=== PATIENT | female | born 1930 | race Caucasian/White ===

== ENCOUNTER 2017-03-31 10:37 | Inpatient (IN) | payer OTHER, MEDICARE ==
[~2017-03-31] VITALS: Ht 172.7 cm; Wt 74.6 kg
[~2017-03-31 10:37] MED LIST: AMLO-110 PO; ASPEC81 PO; ATEN-175 PO; ATV5 PO; CHOL100010 PO; CIPR-255 PO; CLTP PO; CMD2 PO; DICY10CA12 PO; DIGO0.2518 PO; DPRCR15 TOP; LISI20TA3 PO; MAGN400T6 PO; MEGA RED PO; MULT-223 PO; NTRSL3 UT; WARF2TAB PO
[2017-03-31] MEDS ORDERED: LACTATED RINGER'S 1000ML 1,000 ML IV SCH (11:12)
[2017-03-31] MEDS ORDERED: ACETAMINOPHEN 500 MG TAB PO PRN (11:15)
[2017-03-31] MEDS ORDERED: HYDROmorphone INJ 0.5 MG/0.5 ML SYR IV PRN ×3 (11:15→13:00)
[2017-03-31 11:28] LABS: BASO % 0.2 %; BASO ABS # 0.02 K/uL (0-0.2); COMPLETE YES; EOS % 1.2 %; HEMATOCRIT 43.9 % (37-47); IG% 0.5 %; LYMPH % 13.7 %; LYMPH ABS # 1.15 K/uL (1.2-3.4); MEAN CELL VOLUME 93.8 fL (80-100); MEAN CORPUSCULAR HEMOGLOBIN 30.8 pg (25-34); MEAN CORPUSCULAR HGB CONC 32.8 g/dl (32-36); MEAN PLATELET VOLUME 10.1 fL (7.4-10.4); MONO % 9.1 %; NEUT % 75.3 %; PLATELET COUNT 214 K/uL (130-400); RED BLOOD COUNT 4.68 M/uL (4.2-5.4); WHITE BLOOD COUNT 8.38 K/uL (4.8-10.8)
[2017-03-31] MEDS ORDERED: WARF6TAB5 PO (11:36)
[2017-03-31] MEDS ORDERED: CHOL100010 PO (11:36)
[2017-03-31] MEDS ORDERED: KRIL1CAP18 PO (11:36)
[2017-03-31] MEDS ORDERED: CALCTAB7 PO (11:36)
[2017-03-31] MEDS ORDERED: LORA-741 PO (11:36)
[2017-03-31] MEDS ORDERED: DPRSL60 TOP (11:36)
[2017-03-31] MEDS ORDERED: LNX125 PO (11:36)
[2017-03-31] MEDS ORDERED: WARF4TAB8 PO (11:36)
[2017-03-31 11:37] LABS: INR 2.3 (0.9-1.1); PARTIAL THROMBOPLASTIN RATIO 1.2; PROTHROMBIN TIME (PATIENT) 25.7 SECONDS (9.0-12.0)
[2017-03-31] MEDS ORDERED: FSM70 PO (11:38)
[2017-03-31 11:46] LABS: BUN/CREATININE RATIO 17.2 (10-20); CALCIUM 9.2 mg/dl (8.5-10.1); POTASSIUM 4.2 mmol/L (3.5-5.1)
--- NOTE | 2017-03-31 12:10 | DIAGNOSTIC IMAGING REPORT ---
CHEST ONE VIEW PORTABLE CLINICAL HISTORY: 86 years-old Female presenting with fall, left hip pain. TECHNIQUE: Portable supine AP view of the chest was obtained. COMPARISON: None. FINDINGS: Atherosclerosis of the aortic arch. Enlargement of the cardiac silhouette. Vague nodular opacities may be present at the left midlung. No other focal infiltrate. Hyperinflated lungs. No pleural effusion or pneumothorax. Osteopenia suggested. Upper abdomen normal. IMPRESSION: 1. Questionable nodular opacities in the left midlung. PA and lateral radiographs of the chest may better demonstrate these opacities if they are present. 2. Hyperinflation. 3. Apparent cardiomegaly. Electronically signed by: Cecilio Lockhart M.D. 03/31/2017 12:08 PM Dictated Date/Time: 03/31/2017 12:05 PM
--- NOTE | 2017-03-31 12:15 | DIAGNOSTIC IMAGING REPORT ---
LEFT PELVIS/UNILATERAL HIP 2-3VIEWS CLINICAL HISTORY: 86 years-old Female presenting with fall, left hip pain. TECHNIQUE: Single frontal view of the pelvis and frontal and frog-leg lateral views of the left hip were obtained. COMPARISON: None. FINDINGS: Displaced intertrochanteric fracture of the left femur. The lesser trochanter is likely forms a separate fracture fragment. There is over 1 cm of displacement of the femoral metaphysis from the femoral neck fragment. There is varus angulation as a result of the fracture also noted. The remainder of the pelvis demonstrates osteopenia. No other fracture is evident. Degenerative changes of the lower lumbar spine. Moderate stool burden. Pelvic phleboliths. IMPRESSION: Displaced and angulated intertrochanteric fracture of the left femur with separate lesser trochanter fracture fragment. Osteopenia. Electronically signed by: Cecilio Lockhart M.D. 03/31/2017 12:14 PM Dictated Date/Time: 03/31/2017 12:11 PM
[2017-03-31 12:41] LABS: URINE APPEARANCE CLEAR (CLEAR); URINE BILIRUBIN NEG (NEG); URINE COLOR YELLOW; URINE NITRITE NEG (NEG); URINE SPECIFIC GRAVITY 1.015 (1.000-1.030); UROBILINOGEN NEG (NEG); ZZURINE CULT IF INDIC CATH NO
[2017-03-31 12:44] LABS: MANUAL MICROSCOPIC REQUIRED? NO; REVIEW REQ? NO
[2017-03-31] MEDS ORDERED: POLYETHYLENE (MIRALAX) 17 GM PACK PO PRN (13:00)
[2017-03-31] MEDS ORDERED: MAGNESIUM HYDROXIDE SUSP 30 ML UDC PO PRN (13:00)
[2017-03-31] MEDS ORDERED: SOD PHOSPHATE/SOD BIPHOSPHATE ENEMA 132 ML BTL PR PRN (13:00)
[2017-03-31] MEDS ORDERED: NALOXONE HCL 0.4 MG/1 ML VIAL/CARP IV PRN (13:00)
[2017-03-31] MEDS ORDERED: BISACODYL 10 MG SUPP PR PRN (13:00)
[2017-03-31] MEDS ORDERED: NITROGLYCERIN 0.3 MG/1 TAB 100 TAB BTL UT PRN (13:30)
[2017-03-31] MEDS ORDERED: DICYCLOMINE HCL 10 MG CAP PO PRN (13:30)
[2017-03-31] MEDS ORDERED: LORAZEPAM 0.5 MG TAB PO PRN (13:30)
[2017-03-31 13:43] VITALS: Ht 172.7 cm; Wt 74.6 kg
[2017-03-31] MEDS ORDERED: PHYTONADIONE INJ 10 MG in SODIUM CHLORIDE 0.9% 50ML 50 ML IV STA (13:56)
[2017-03-31 14:06] LABS: BUN/CREATININE RATIO 16.4 (10-20); POTASSIUM 4.2 mmol/L (3.5-5.1)
[2017-03-31 14:09] LABS: ALB/GLOB RATIO 1.2 (0.9-2)
--- NOTE | 2017-03-31 14:25 | History and Physical ---
History & Physical Date & Time of Service: Mar 31, 2017 at 14:09 Chief Complaint: Fall/ Lf Hip Pain Primary Care Physician: Juan Meza D.O. History of Present Illness Source: patient, family This is a 86 year old F with history of atrial fibrillation on coumadin with witnessed mechanical fall while at fast food restaurant without loss of consciousness. Patient found to have Displaced and angulated intertrochanteric fracture of the left femur with separate lesser trochanter fracture fragment. Patient is has therapeutic level of INR and last took her coumadin yesterday. Patient denies history of cardiac respiratory symptoms despite history of atrial fibrillation for which she also takes digoxin. Reports being able to ambulate without dyspnea at baseline, able to sleep comfortably flat on her back. She reports that she does get swelling of her legs towards the end of the day but that resolves in the morning after sleeping. She denies history of diabetes and there are no antihyperglycemic medications in her medication list. Patient also reports that in emergency situations she is DNR - no intubations, no mechanical ventilation, no chest compressions, no shocking of the heart. I explained to her that the DNR may need to be rescinded temporarily for when doing surgeries. I have referred her to discuss this in greater detail with orthopedic service who will be evaluating her leg fracture for possible surgical intervention. Patient reported that she ate breakfast before mechanical fall today. Past Medical/Surgical History Medical Problems: (1) Atrial fibrillation Status: Chronic (2) Cataract Status: Chronic (3) Diabetes Status: Chronic (4) Heart disease Status: Chronic (5) Kidney disease Status: Chronic Surgical Problems: (1) History of appendectomy Status: Resolved Family History Cancer Diabetes mellitus Hypertension Social History Smoking Status: Former Smoker Marital Status: Housing status: lives with family Occupational Status: retired Multi-Drug Resistant Organisms History of MDRO: No Allergies Coded Allergies: Penicillins (Unverified Allergy, Unknown, 03/31/17) Sulfa Antibiotics (Verified Allergy, Unknown, Unknown, 03/31/17) Vinegar (Unverified Allergy, Unknown, UNKNOWN, 03/31/17) Home Medications Scheduled Alendronate Sodium (Alendronate Sodium), 70 MG PO SUNDAY Amlodipine (Norvasc), 5 MG PO DAILY Atenolol (Tenormin), 100 MG PO QPM Calcium Carbonate-Vitamin D W/ (Caltrate 600 Plus), 1 TAB PO DAILY Cholecalciferol (Vitamin D), 1,000 UNIT PO DAILY Digoxin (Digoxin), 0.125 MG PO DAILY@1500 Krill Oil (Megared [place]-3 Krill Oil 500 mg), 1 CAP PO DAILY Lisinopril (Prinivil), 20 MG PO DAILY Magnesium Oxide (Mag-Ox), 400 MG PO DAILY Multiple Vitamins W/ Minerals (Multi For Her 50+), 1 TAB PO DAILY Nitroglycerin (Nitrostat), 0.3 MG UT PRN Warfarin Sod (Jantoven), 4 MG PO 5XWK Warfarin Sod (Jantoven), 6 MG PO 2XWK Scheduled PRN Betamethasone Dip (Betamethasone Dipropionat), 1 APPLN TOP DAILY PRN for SCALP ITCH Dicyclomine Hcl (Dicyclomine Hcl), 10 MG PO QID PRN for ABDOMINAL PAIN Lorazepam (Ativan), 0.5 MG PO Q6H PRN for Anxiety Review of Systems Constitutional: No fever Eyes: No worsening of vision ENT: No hearing loss Respiratory: No cough, No shortness of breath, No dyspnea on exertion, No dyspnea at rest Cardiovascular: No chest pain, No orthopnea, No edema, No palpitations Abdomen: No pain, No nausea, No vomiting Musculoskeletal: + joint pain (left leg and hip with pain that is now controlled with pain medications), No calf pain Genitourinary - Female: No dysuria Neurologic: No numbness/tingling, No vertigo Psychiatric: No substance abuse Integumentary: No rash Physical Exam Vital Signs Date Time Temp Pulse Resp B/P (MAP) Pulse Ox O2 Delivery O2 Flow Rate FiO2 03/31/17 13:43 Room Air 03/31/17 10:55 81 03/31/17 10:54 37.0 87 25 169/105 96 Room Air General Appearance: no apparent distress Head: normocephalic, atraumatic Eyes: PERRL, EOMI ENT: hearing grossly normal, pharynx normal Neck: supple, no JVD Respiratory/Chest: chest non-tender, lungs clear, normal breath sounds, no respiratory distress, no accessory muscle use Cardiovascular: no edema, no JVD, + irregularly irregular Abdomen/GI: normal bowel sounds, non tender, soft, no pulsatile mass Extremities/Musculoskelatal: no calf tenderness, normal capillary refill, no pedal edema, + pertinent finding (left leg appears to be shorter than right leg when laying flat likely due to fracture) Neurologic/Psych: alert, oriented x 3 Skin: normal color, warm/dry, no rash Diagnostics Laboratory Results Results Past 24 Hours Test 03/31/17 11:17 03/31/17 12:19 03/31/17 13:29 Range/Units White Blood Count 8.38 4.8-10.8 K/uL Red Blood Count 4.68 4.2-5.4 M/uL Hemoglobin 14.4 12.0-16.0 g/dL Hematocrit 43.9 37-47 % Mean Corpuscular Volume 93.8 80-100 fL Mean Corpuscular Hemoglobin 30.8 25-34 pg Mean Corpuscular Hemoglobin Concent 32.8 32-36 g/dl Platelet Count 214 130-400 K/uL Mean Platelet Volume 10.1 7.4-10.4 fL Neutrophils (%) (Auto) 75.3 % Lymphocytes (%) (Auto) 13.7 % Monocytes (%) (Auto) 9.1 % Eosinophils (%) (Auto) 1.2 % Basophils (%) (Auto) 0.2 % Neutrophils # (Auto) 6.31 1.4-6.5 K/uL Lymphocytes # (Auto) 1.15 1.2-3.4 K/uL Monocytes # (Auto) 0.76 0.11-0.59 K/uL Eosinophils # (Auto) 0.10 0-0.5 K/uL Basophils # (Auto) 0.02 0-0.2 K/uL RDW Standard Deviation 48.0 36.4-46.3 fL RDW Coefficient of Variation 14.0 11.5-14.5 % Immature Granulocyte % (Auto) 0.5 % Immature Granulocyte # (Auto) 0.04 0.00-0.02 K/uL Prothrombin Time 25.7 9.0-12.0 SECONDS Prothromb Time International Ratio 2.3 0.9-1.1 Activated Partial Thromboplast Time 31.0 21.0-31.0 SECONDS Partial Thromboplastin Ratio 1.2 Sodium Level 142 136-145 mmol/L Potassium Level 4.2 3.5-5.1 mmol/L Chloride Level 105 98-107 mmol/L Carbon Dioxide Level 31 21-32 mmol/L Anion Gap 6.0 3-11 mmol/L Blood Urea Nitrogen 16 7-18 mg/dl Creatinine 1.00 0.60-1.20 mg/dl Est Creatinine Clear Calc Drug Dose 40.0 ml/min Estimated GFR () 58.7 Estimated GFR (Non- 50.6 BUN/Creatinine Ratio 16.4 10-20 Random Glucose 150 70-99 mg/dl Calcium Level 9.0 8.5-10.1 mg/dl Total Bilirubin 1.1 0.2-1 mg/dl Aspartate Amino Transf (AST/SGOT) 18 15-37 U/L Alanine Aminotransferase (ALT/SGPT) 28 12-78 U/L Alkaline Phosphatase 64 45-117 U/L Total Protein 6.9 6.4-8.2 gm/dl Albumin 3.8 3.4-5.0 gm/dl Globulin 3.1 2.5-4.0 gm/dl Albumin/Globulin Ratio 1.2 0.9-2 Urine Color YELLOW Urine Appearance CLEAR CLEAR Urine pH 7.0 4.5-7.5 Urine Specific [place] 1.015 1.000-1.030 Urine Protein NEG NEG Urine Glucose (UA) NEG NEG Urine Ketones NEG NEG Urine Occult Blood NEG NEG Urine Nitrite NEG NEG Urine Bilirubin NEG NEG Urine Urobilinogen NEG NEG Urine Leukocyte Esterase NEG NEG Diagnostic Radiology CXR radiology findings and radiologist impression Atherosclerosis of the aortic arch. Enlargement of the cardiac silhouette. Vague nodular opacities may be present at the left midlung. No other focal infiltrate. Hyperinflated lungs. No pleural effusion or pneumothorax. Osteopenia suggested. Upper abdomen normal. IMPRESSION: 1. Questionable nodular opacities in the left midlung. PA and lateral radiographs of the chest may better demonstrate these opacities if they are present. 2. Hyperinflation. 3. Apparent cardiomegaly. LEFT PELVIS/UNILATERAL HIP 2-3VIEWS X ray radiology findings FINDINGS: Displaced intertrochanteric fracture of the left femur. The lesser trochanter is likely forms a separate fracture fragment. There is over 1 cm of displacement of the femoral metaphysis from the femoral neck fragment. There is varus angulation as a result of the fracture also noted. The remainder of the pelvis demonstrates osteopenia. No other fracture is evident. Degenerative changes of the lower lumbar spine. Moderate stool burden. Pelvic phleboliths. other (opacities in the left midlung) EKG atrial fibrillation without RVR Impression Assessment and Plan This is a 86 year old F with history of atrial fibrillation on coumadin with witnessed mechanical fall while at fast food restaurant without loss of consciousness found to have Displaced and angulated intertrochanteric fracture of the left femur with separate lesser trochanter fracture fragment. Atrial fibrillation -rate is controlled on EKG and on exam -continue home dose digoxin, check digoxin level -at home she takes coumadin 3 mg on Sunday and Sunday and 2 mg daily on other days. Last coumadin use on 03/30/2017. INR 2.3 on ED presentation on 03/31/17. Ordered Vitamin K IV 10 mg x 1 for INR reversal for possible orthopedic intervention for left femur fracture Other cardiovascular -continue home medications of lisinopril, amlodipine, atenolol Left femur fracture -pain control, bowel regimen, ativan prn for history of anxiety -awaiting orthopedic recommendations Allergies: patient reports allergies to penicillin and sulfa drugs without being able to recall the adverse reactions Code Status -Patient also reports that in emergency situations she is DNR - no intubations, no mechanical ventilation, no chest compressions, no shocking of the heart. I explained to her that the DNR may need to be rescinded temporarily for when doing surgeries. I have referred her to discuss this in greater detail with orthopedic service who will be evaluating her leg fracture for possible surgical intervention. Patient reported that she ate breakfast before mechanical fall today. Advanced Directives Existing Living Will: Yes Existing Power of Aerospace Project Manager: Yes VTE Prophylaxis VTE Risk Assessment Done? Y/N: Yes Risk Level: Moderate
--- NOTE | 2017-03-31 14:32 | Orthopedic Consultation ---
Orthopedic Consultation Date of Consultation: Mar 31, 2017. Attending Physician: Reason for Consultation: L intertroch fx History of Present Illness 86 yo female who tripped, landing onto L hip. Hx of afib, on coumadin. Immediate pain and inability to ambulate. Presented to ED Past Medical/Surgical History Medical Problems: (1) Atrial fibrillation Status: Chronic (2) Femur fracture, left Status: Acute Family History Cancer Diabetes mellitus Hypertension Social History Smoking Status: Former Smoker Marital Status: Housing Status: lives with significant other Occupation Status: retired Allergies Coded Allergies: Penicillins (Unverified Allergy, Unknown, 03/31/17) Sulfa Antibiotics (Verified Allergy, Unknown, Unknown, 03/31/17) Vinegar (Unverified Allergy, Unknown, UNKNOWN, 03/31/17) Home Medications Scheduled Alendronate Sodium (Alendronate Sodium), 70 MG PO SUNDAY Amlodipine (Norvasc), 5 MG PO DAILY Atenolol (Tenormin), 100 MG PO QPM Calcium Carbonate-Vitamin D W/ (Caltrate 600 Plus), 1 TAB PO DAILY Cholecalciferol (Vitamin D), 1,000 UNIT PO DAILY Digoxin (Digoxin), 0.125 MG PO DAILY@1500 Krill Oil (Megared [place]-3 Krill Oil 500 mg), 1 CAP PO DAILY Lisinopril (Prinivil), 20 MG PO DAILY Magnesium Oxide (Mag-Ox), 400 MG PO DAILY Multiple Vitamins W/ Minerals (Multi For Her 50+), 1 TAB PO DAILY Nitroglycerin (Nitrostat), 0.3 MG UT PRN Warfarin Sod (Jantoven), 4 MG PO 5XWK Warfarin Sod (Jantoven), 6 MG PO 2XWK Scheduled PRN Betamethasone Dip (Betamethasone Dipropionat), 1 APPLN TOP DAILY PRN for SCALP ITCH Dicyclomine Hcl (Dicyclomine Hcl), 10 MG PO QID PRN for ABDOMINAL PAIN Lorazepam (Ativan), 0.5 MG PO Q6H PRN for Anxiety Current Inpatient Medications Current Inpatient Medications Medications (Trade) Dose Ordered Sig/Mike Route Start Time Stop Time Status Last Admin Dose Admin Lactated Ringer's 1,000 ml @ 75 mls/hr [id number] IV 03/31/17 11:12 04/30/17 11:11 03/31/17 11:12 75 MLS/HR Acetaminophen (Tylenol Tab) 1,000 mg Q6H PRN PO 03/31/17 11:15 04/30/17 11:14 Hydromorphone HCl (Dilaudid Inj) 0.25 mg Q20M PRN IV 03/31/17 11:15 04/14/17 11:14 Hydromorphone HCl (Dilaudid Inj) 0.5 mg Q20M PRN IV 03/31/17 11:15 04/14/17 11:14 03/31/17 11:29 0.5 MG Hydromorphone HCl (Dilaudid Inj) 0.5 mg Q20M PRN IV 03/31/17 13:00 04/14/17 12:59 Naloxone HCl (Narcan Inj) 0.1 mg PRN PRN IV 03/31/17 13:00 04/30/17 12:59 Senna/Docusate Sodium (Senokot S Tab) 2 tab HS PO 03/31/17 21:00 04/30/17 20:59 UNV Polyethylene (Miralax Powder Packet) 17 gm DAILY PRN PO 03/31/17 13:00 04/30/17 12:59 Magnesium Hydroxide (Milk Of Magnesia Susp) 30 ml DAILY PRN PO 03/31/17 13:00 04/30/17 12:59 Bisacodyl (Dulcolax Supp) 10 mg DAILY PRN MS 03/31/17 13:00 04/30/17 12:59 Sodium Biphosphate/ Sodium Phosphate (Fleet Enema) 132 ml PRN PRN MS 03/31/17 13:00 Amlodipine Besylate (Norvasc Tab) 5 mg DAILY PO 04/01/17 09:00 05/01/17 08:59 UNV Atenolol (Tenormin Tab) 100 mg QPM PO 03/31/17 21:00 04/30/17 20:59 UNV Dicyclomine HCl (Bentyl Cap) 10 mg QID PRN PO 03/31/17 13:30 04/30/17 13:29 Digoxin (Lanoxin Tab) 0.125 mg DAILY@1500 PO 03/31/17 15:00 04/30/17 14:59 UNV Lisinopril (Zestril Tab) 20 mg DAILY PO 04/01/17 09:00 05/01/17 08:59 UNV Lorazepam (Ativan Tab) 0.5 mg Q6H PRN PO 03/31/17 13:30 04/30/17 13:29 Nitroglycerin (Nitrostat Tab) 0.3 mg PRN PRN UT 03/31/17 13:30 04/30/17 13:29 Physical Exam Date Time Temp Pulse Resp B/P (MAP) Pulse Ox O2 Delivery O2 Flow Rate FiO2 03/31/17 14:07 80 22 98 03/31/17 14:01 139/89 03/31/17 13:43 Room Air 03/31/17 13:37 92 20 96 03/31/17 13:31 146/78 03/31/17 13:07 86 29 95 03/31/17 13:01 162/78 03/31/17 12:37 89 24 90 03/31/17 12:31 135/89 03/31/17 12:07 96 21 97 03/31/17 12:01 166/105 03/31/17 11:59 167/94 03/31/17 11:37 85 26 96 03/31/17 11:33 140/89 03/31/17 11:07 79 19 91 03/31/17 10:55 81 03/31/17 10:54 37.0 87 25 169/105 96 Room Air 03/31/17 10:51 169/105 General Appearance: WD/WN Head: normocephalic Eyes: normal inspection Neck: supple Respiratory/Chest: chest non-tender Cardiovascular: regular rate, rhythm Abdomen/GI: soft Extremities/Musculoskelatal: + pertinent finding (Limb slightly internally rotated, 2+ DP, lt sens/motor fxn intact, pain with rotation of leg at hip. No pain to palpation to knee) Laboratory Results Last 24 Hours Test 03/31/17 11:17 03/31/17 12:19 03/31/17 14:19 White Blood Count 8.38 K/uL Red Blood Count 4.68 M/uL Hemoglobin 14.4 g/dL Hematocrit 43.9 % Mean Corpuscular Volume 93.8 fL Mean Corpuscular Hemoglobin 30.8 pg Mean Corpuscular Hemoglobin Concent 32.8 g/dl Platelet Count 214 K/uL Mean Platelet Volume 10.1 fL Neutrophils (%) (Auto) 75.3 % Lymphocytes (%) (Auto) 13.7 % Monocytes (%) (Auto) 9.1 % Eosinophils (%) (Auto) 1.2 % Basophils (%) (Auto) 0.2 % Neutrophils # (Auto) 6.31 K/uL Lymphocytes # (Auto) 1.15 K/uL Monocytes # (Auto) 0.76 K/uL Eosinophils # (Auto) 0.10 K/uL Basophils # (Auto) 0.02 K/uL RDW Standard Deviation 48.0 fL RDW Coefficient of Variation 14.0 % Immature Granulocyte % (Auto) 0.5 % Immature Granulocyte # (Auto) 0.04 K/uL Prothrombin Time 25.7 SECONDS Prothromb Time International Ratio 2.3 Activated Partial Thromboplast Time 31.0 SECONDS Partial Thromboplastin Ratio 1.2 Sodium Level 142 mmol/L Potassium Level 4.2 mmol/L Chloride Level 105 mmol/L Carbon Dioxide Level 31 mmol/L Anion Gap 6.0 mmol/L Blood Urea Nitrogen 16 mg/dl Creatinine 1.00 mg/dl Est Creatinine Clear Calc Drug Dose 40.0 ml/min Estimated GFR () 58.7 Estimated GFR (Non- 50.6 BUN/Creatinine Ratio 16.4 Random Glucose 150 mg/dl Calcium Level 9.0 mg/dl Total Bilirubin 1.1 mg/dl Aspartate Amino Transf (AST/SGOT) 18 U/L Alanine Aminotransferase (ALT/SGPT) 28 U/L Alkaline Phosphatase 64 U/L Total Protein 6.9 gm/dl Albumin 3.8 gm/dl Globulin 3.1 gm/dl Albumin/Globulin Ratio 1.2 Urine Color YELLOW Urine Appearance CLEAR Urine pH 7.0 Urine Specific [place] 1.015 Urine Protein NEG Urine Glucose (UA) NEG Urine Ketones NEG Urine Occult Blood NEG Urine Nitrite NEG Urine Bilirubin NEG Urine Urobilinogen NEG Urine Leukocyte Esterase NEG Assessment & Plan Left intertroch fx INR is 2.3 Being admitted by medicine Will plan ORIF with short troch once INR is acceptable, hopefully tomorrow. NPO p delgado
[2017-03-31 16:24] VITALS: BP 149/82; PULSE 83; TEMP 36.6; O2SAT 99
[2017-03-31] MEDS: DIGOXIN 0.125 MG TAB PO SCH (16:40)
[2017-03-31] MEDS ORDERED: ONDANSETRON INJ 8 MG in DEXTROSE 5% 50ML 50 ML IV PRN (17:30)
[2017-03-31] MEDS ORDERED: ONDANSETRON INJ 2 MG/ML 2 ML VIAL ONE (17:42)
--- NOTE | 2017-03-31 17:52 | EMERGENCY ROOM VISIT NOTE ---
History Report prepared by Daniel: Guillermo Sarmiento Under the Supervision of: Dr. Milton Gavin M.D. First contact with patient: 10:56 Chief Complaint: FALL Stated Complaint: FALL/ LF HIP PAIN History of Present Illness The patient is an 86 year old female with osteoporosis who presents to the Emergency Room via ambulance with complaints of a mechanical fall that occurred prior to arrival this morning. The patient says that she was walking into [employer], and tripped on a rug, falling down onto her left hip. She states that she has resulting persistent left hip pain as well as a left arm skin tear. She says that her other extremities feel fine. The patient rates her current hip pain as an 8 out of 10 in severity, and the pain is worsened with movement. She says that her right side is perfectly fine, and she did not hit head. The patient says that she has never had any hip replacements in the past, but she did fracture a bone in her left foot earlier this year and saw [facility]. She notes that she did not have surgery on the foot. Per the nursing staff, the patient is on Coumadin for atrial fibrillation, and last received 7.5 mg Morphine around 40 minutes ago, and also had 4 of Zofran. Pt denies LOC, headache, visual changes, neck pain, chest pain, breathing difficulties, nausea, vomiting, abdominal pain, back pain, numbness, weakness, open wounds, active bleeding, or other complaints. Source of History: patient, nursing staff Onset: Prior to arrival this morning Position: other (global - fall) Symptom Intensity: fell onto rug walking into [employer] [place], did not hit head Quality: other (mechanical) Modifying Factors (Worsening): movement Note: Associated symptoms: Left hip pain worsened with movement. Left arm skin tear. Right side feels perfectly fine. Review of Systems See HPI for pertinent positives and negatives. A total of ten systems were reviewed and were otherwise negative. Past Medical & Surgical Medical Problems: (1) Atrial fibrillation (2) Cataract (3) Diabetes (4) Heart disease (5) Kidney disease Surgical Problems: (1) History of appendectomy Family History Cancer Diabetes mellitus Hypertension Social History Smoking Status: Never Smoker Marital Status: Housing Status: lives with significant other Occupation Status: retired Current/Historical Medications Scheduled Alendronate Sodium (Alendronate Sodium), 70 MG PO SAMSON Amlodipine (Norvasc), 5 MG PO DAILY Atenolol (Tenormin), 100 MG PO QPM Calcium Carbonate-Vitamin D W/ (Caltrate 600 Plus), 1 TAB PO DAILY Cholecalciferol (Vitamin D), 1,000 UNIT PO DAILY Digoxin (Digoxin), 0.125 MG PO DAILY@1500 Krill Oil (Megared Ona-3 Krill Oil 500 mg), 1 CAP PO DAILY Lisinopril (Prinivil), 20 MG PO DAILY Magnesium Oxide (Mag-Ox), 400 MG PO DAILY Multiple Vitamins W/ Minerals (Multi For Her 50+), 1 TAB PO DAILY Nitroglycerin (Nitrostat), 0.3 MG UT PRN Warfarin Sod (Jantoven), 4 MG PO 5XWK Warfarin Sod (Jantoven), 6 MG PO 2XWK Scheduled PRN Betamethasone Dip (Betamethasone Dipropionat), 1 APPLN TOP DAILY PRN for SCALP ITCH Dicyclomine Hcl (Dicyclomine Hcl), 10 MG PO QID PRN for ABDOMINAL PAIN Lorazepam (Ativan), 0.5 MG PO Q6H PRN for Anxiety Allergies Coded Allergies: Penicillins (Unverified Allergy, Unknown, 03/31/17) Sulfa Antibiotics (Verified Allergy, Unknown, Unknown, 03/31/17) Vinegar (Unverified Allergy, Unknown, UNKNOWN, 03/31/17) Physical Exam Vital Signs Date Time Temp Pulse Resp B/P (MAP) Pulse Ox O2 Delivery O2 Flow Rate FiO2 03/31/17 13:31 146/78 03/31/17 13:07 86 29 95 03/31/17 13:01 162/78 03/31/17 12:37 89 24 90 03/31/17 12:31 135/89 03/31/17 12:07 96 21 97 03/31/17 12:01 166/105 03/31/17 11:59 167/94 03/31/17 11:37 85 26 96 03/31/17 11:33 140/89 03/31/17 11:07 79 19 91 03/31/17 10:55 81 03/31/17 10:54 37.0 87 25 169/105 96 Room Air 03/31/17 10:51 169/105 Physical Exam GENERAL: Awake, alert, well-appearing, in no distress HENT: Normocephalic, atraumatic. Oropharynx unremarkable. EYES: Normal conjunctiva. Sclera non-icteric. NECK: Supple. No nuchal rigidity. FROM. No JVD. RESPIRATORY: Clear to auscultation. CARDIAC: Regular rate, normal rhythm. Extremities warm and well perfused. Pulses equal. ABDOMEN: Soft, non-distended. No tenderness to palpation. No rebound or guarding. No masses. RECTAL: Deferred. MUSCULOSKELETAL: Skin tear on left elbow, no bony tenderness. Chest examination reveals no tenderness. The back is symmetrical on inspection without obvious abnormality. There is no CVA tenderness to palpation. No joint edema. LOWER EXTREMITIES: Left hip tenderness, no thigh tenderness. Range of motion limited secondary to pain in left hip. Calves are equal size bilaterally and non -tender. NEURO: Normal sensorium. No sensory or motor deficits noted. SKIN: No rash or jaundice noted. Medical Decision & Procedures ER Provider Diagnostic Interpretation: X-ray: Per my interpretation, radiologist review. LEFT PELVIS/UNILATERAL HIP 2-3VIEWS CLINICAL HISTORY: 86 years-old Female presenting with fall, left hip pain. TECHNIQUE: Single frontal view of the pelvis and frontal and frog-leg lateral views of the left hip were obtained. COMPARISON: None. FINDINGS: Displaced intertrochanteric fracture of the left femur. The lesser trochanter is likely forms a separate fracture fragment. There is over 1 cm of displacement of the femoral metaphysis from the femoral neck fragment. There is varus angulation as a result of the fracture also noted. The remainder of the pelvis demonstrates osteopenia. No other fracture is evident. Degenerative changes of the lower lumbar spine. Moderate stool burden. Pelvic phleboliths. IMPRESSION: Displaced and angulated intertrochanteric fracture of the left femur with separate lesser trochanter fracture fragment. Osteopenia. Electronically signed by: Cecilio Lockhart M.D. 03/31/2017 12:14 PM Dictated Date/Time: 03/31/2017 12:11 PM CHEST ONE VIEW PORTABLE CLINICAL HISTORY: 86 years-old Female presenting with fall, left hip pain. TECHNIQUE: Portable supine AP view of the chest was obtained. COMPARISON: None. FINDINGS: Atherosclerosis of the aortic arch. Enlargement of the cardiac silhouette. Vague nodular opacities may be present at the left midlung. No other focal infiltrate. Hyperinflated lungs. No pleural effusion or pneumothorax. Osteopenia suggested. Upper abdomen normal. IMPRESSION: 1. Questionable nodular opacities in the left midlung. PA and lateral radiographs of the chest may better demonstrate these opacities if they are present. 2. Hyperinflation. 3. Apparent cardiomegaly. Electronically signed by: Cecilio Lockhart M.D. 03/31/2017 12:08 PM Dictated Date/Time: 03/31/2017 12:05 PM Laboratory Results 03/31/17 11:17 Red Blood Count 4.68, Mean Corpuscular Volume 93.8, Mean Corpuscular Hemoglobin 30.8, Mean Corpuscular Hemoglobin Concent 32.8, Mean Platelet Volume 10.1, Neutrophils (%) (Auto) 75.3, Lymphocytes (%) (Auto) 13.7, Monocytes (%) (Auto) 9.1, Eosinophils (%) (Auto) 1.2, Basophils (%) (Auto) 0.2, Neutrophils # (Auto) 6.31, Lymphocytes # (Auto) 1.15, Monocytes # (Auto) 0.76, Eosinophils # (Auto) 0.10, Basophils # (Auto) 0.02 03/31/17 11:17 Test 03/31/17 11:17 03/31/17 12:19 White Blood Count 8.38 K/uL (4.8-10.8) Red Blood Count 4.68 M/uL (4.2-5.4) Hemoglobin 14.4 g/dL (12.0-16.0) Hematocrit 43.9 % (37-47) Mean Corpuscular Volume 93.8 fL (80-100) Mean Corpuscular Hemoglobin 30.8 pg (25-34) Mean Corpuscular Hemoglobin Concent 32.8 g/dl (32-36) Platelet Count 214 K/uL (130-400) Mean Platelet Volume 10.1 fL (7.4-10.4) Neutrophils (%) (Auto) 75.3 % Lymphocytes (%) (Auto) 13.7 % Monocytes (%) (Auto) 9.1 % Eosinophils (%) (Auto) 1.2 % Basophils (%) (Auto) 0.2 % Neutrophils # (Auto) 6.31 K/uL (1.4-6.5) Lymphocytes # (Auto) 1.15 K/uL (1.2-3.4) Monocytes # (Auto) 0.76 K/uL (0.11-0.59) Eosinophils # (Auto) 0.10 K/uL (0-0.5) Basophils # (Auto) 0.02 K/uL (0-0.2) RDW Standard Deviation 48.0 fL (36.4-46.3) RDW Coefficient of Variation 14.0 % (11.5-14.5) Immature Granulocyte % (Auto) 0.5 % Immature Granulocyte # (Auto) 0.04 K/uL (0.00-0.02) Prothrombin Time 25.7 SECONDS (9.0-12.0) Prothromb Time International Ratio 2.3 (0.9-1.1) Activated Partial Thromboplast Time 31.0 SECONDS (21.0-31.0) Partial Thromboplastin Ratio 1.2 Anion Gap 6.0 mmol/L (3-11) Est Creatinine Clear Calc Drug Dose 40.0 ml/min Estimated GFR () 58.7 Estimated GFR (Non- 50.6 BUN/Creatinine Ratio 16.4 (10-20) Calcium Level 9.0 mg/dl (8.5-10.1) Total Bilirubin 1.1 mg/dl (0.2-1) Aspartate Amino Transf (AST/SGOT) 18 U/L (15-37) Alanine Aminotransferase (ALT/SGPT) 28 U/L (12-78) Alkaline Phosphatase 64 U/L (45-117) Total Protein 6.9 gm/dl (6.4-8.2) Albumin 3.8 gm/dl (3.4-5.0) Globulin 3.1 gm/dl (2.5-4.0) Albumin/Globulin Ratio 1.2 (0.9-2) Urine Color YELLOW Urine Appearance CLEAR (CLEAR) Urine pH 7.0 (4.5-7.5) Urine Specific Carroll 1.015 (1.000-1.030) Urine Protein NEG (NEG) Urine Glucose (UA) NEG (NEG) Urine Ketones NEG (NEG) Urine Occult Blood NEG (NEG) Urine Nitrite NEG (NEG) Urine Bilirubin NEG (NEG) Urine Urobilinogen NEG (NEG) Urine Leukocyte Esterase NEG (NEG) Laboratory results reviewed by me Medications Administered Medications (Trade) Dose Ordered Sig/Mike Route Start Time Stop Time Status Last Admin Dose Admin Lactated Ringer's 1,000 ml @ 75 mls/hr [id number] IV 03/31/17 11:12 03/31/17 16:02 DC 03/31/17 11:12 75 MLS/HR Hydromorphone HCl (Dilaudid Inj) 0.5 mg Q20M PRN IV 03/31/17 11:15 03/31/17 16:03 DC 03/31/17 11:29 0.5 MG Hydromorphone HCl (Dilaudid Inj) 0.5 mg Q20M PRN IV 03/31/17 13:00 04/14/17 12:59 03/31/17 16:19 0.5 MG Procedure Location: Left elbow Total length: skin tear 2cm Complexity: simple Verbal consent was obtained after the risks and benefits were explained, including but not limited to bleeding, scarring, infection, pain. At this time, the risks of the procedure are less than the risks of NOT performing the procedure. A time out was taken and the correct patient and site identified. TCopious irrigation was performed using saline. The wound was explored for foreign bodies and none found. Examination revealed no injury to deep structures such as tendons, bone, or significant blood vessels. Debridement was not performed. The skin edges were approximated using Dermabond. Hemostasis and excellent approximation was achieved. No complications and the patient tolerated the procedure well. ED Course 1058: The patient was evaluated in room C7. A complete history and physical exam was performed. 1112: Ordered Lactated Ringer's 1000 ml @ 75 mls/hr IV. 1115: Ordered Dilaudid Inj 0.5 mg IV PRN, Dilaudid Inj 0.25 mg IV PRN. 1240: I reevaluated the patient and she is resting. The patient and her family verbally expressed understanding and agreement of the treatment plan. The patient will be evaluated for further treatment. 1248: I discussed the patient with Dr. Perdomo [facility] orthopedics. 1253: I discussed the patient with Dr. Nick Yoon paper machine tender will evaluate the patient for further treatment. 1348: I reevaluated and updated the patient. She is resting comfortably. Medical Decision Prior records reviewed and summarized above. Triage Nursing notes reviewed and agree them. Additional history obtained from family.. The patient's history was concerning for traumatic injury. Differential diagnosis: Etiologies such as fracture, dislocation, neurovascular compromise, compartment syndrome, soft tissue injury, as well as others were entertained. Physical examination: Consistent with an isolated hip injury. Minor skin tear to the left elbow. No head injury or other injury. ER treatment provided: IV lock IV Dilaudid Rodriguez catheter NPO Bedrest Dermabond to the skin tear. On reassessment the patient felt better. Diagnostics interpreted by me: ECG: As above. The labs revealed an unremarkable CBC, coags, and chemistry panel. Therapeutic INR. Imaging studies: Xrays as above. The patient has an isolated hip fracture and will need admission to the hospital. Consultation: A consultation was placed with orthopedics. The case was discussed and diagnostics were reviewed. The patient was evaluated in the ER for further treatment. The chart was completed utilizing [email or web address] Speech voice recognition software. Grammatical errors, random word insertions, pronoun errors, and incomplete sentences are an occasional consequence of this system due to software limitations, ambient noise, and hardware issues. Any formal questions or concerns about the content, text, or information contained within the body of this dictation should be directly addressed to the physician for clarification. Head Trauma GCS Score: 15 Medication Reconcilliation Current Medication List: was personally reviewed by me Blood Pressure Screening Patient's blood pressure: Elevated blood pressure Blood pressure disposition: Elevated BP felt to be situational Consults Time Called: 1245 Consulting Physician: Dr. Leanne Wilhelm orthopedics Returned Call: 1245 I discussed the patient with Dr. Leanne Wilhelm orthopedics. Additional Consults: Time Called: 1245 Consulted Physician: Dr. Nick Yoon paper machine tender Returned Call: 1253 Additional Comments: I discussed the patient with Dr. Nick Yoon paper machine tender will evaluate the patient for further treatment. Impression Primary Impression: Hip fracture, left Additional Impressions: Skin tear of left elbow without complication Fall Scribe Attestation The scribe's documentation has been prepared under my direction and personally reviewed by me in its entirety. I confirm that the note above accurately reflects all work, treatment, procedures, and medical decision making performed by me. Departure Information Dispostion Being Evaluated By Hospitalist Referrals Juan Meza D.O. (PCP) Patient Instructions [facility] Problem Qualifiers Primary Impression: Hip fracture, left Encounter type: initial encounter Fracture type: closed Qualified Codes: S72.002A - Fracture of unspecified part of neck of left femur, initial encounter for closed fracture Additional Impressions: Skin tear of left elbow without complication Encounter type: initial encounter Qualified Codes: S51.012A - Laceration without foreign body of left elbow, initial encounter Fall Encounter type: initial encounter Qualified Codes: W19.XXXA - Unspecified fall, initial encounter
[2017-03-31] MEDS ORDERED: NURSING VERBAL MED ORDER ONE (18:00)
[2017-03-31] MEDS ORDERED: ONDANSETRON INJ 2 MG/ML 2 ML VIAL IV PRN (18:15)
[2017-03-31] MEDS: DOCUSATE SODIUM/SENNA 50/8.6MG TAB PO SCH (22:00)
[2017-03-31 22:01] VITALS: BP 152/82; PULSE 91
[2017-03-31 23:03] VITALS: BP 137/81; PULSE 79; TEMP 36.8; O2SAT 98
[2017-04-01] VITALS (10 sets, daily range): BP systolic 118–156; BP diastolic 68–84; PULSE 76–103; TEMP 36.6–36.9; O2SAT 91–97
[2017-04-01] MEDS ORDERED: CLINDAMYCIN 600 MG/54 ML D5W IV SCH (06:00)
[2017-04-01] MEDS ORDERED: FENTANYL CITRATE INJ 50 MCG/1 ML 2 ML VIAL ONE ×2 (06:59→09:17)
[2017-04-01] MEDS ORDERED: LIDOCAINE HCL 2% 2 ML VIAL (20MG/ML) ONE (06:59)
[2017-04-01] MEDS ORDERED: PROPOFOL IV EMULSION 10 MG/ML 20 ML VIAL IV ONE (06:59)
[2017-04-01 07:22] LABS: BASO % 0.2 %; BASO ABS # 0.02 K/uL (0-0.2); COMPLETE YES; EOS % 0.6 %; HEMATOCRIT 36.6 % (37-47); IG% 0.3 %; LYMPH % 14.6 %; LYMPH ABS # 1.46 K/uL (1.2-3.4); MEAN CELL VOLUME 93.4 fL (80-100); MEAN CORPUSCULAR HEMOGLOBIN 31.4 pg (25-34); MEAN CORPUSCULAR HGB CONC 33.6 g/dl (32-36); MEAN PLATELET VOLUME 10.2 fL (7.4-10.4); MONO % 10.5 %; NEUT % 73.8 %; PLATELET COUNT 206 K/uL (130-400); RED BLOOD COUNT 3.92 M/uL (4.2-5.4); WHITE BLOOD COUNT 10.03 K/uL (4.8-10.8)
[2017-04-01 07:38] LABS: INR 1.1 (0.9-1.1); PROTHROMBIN TIME (PATIENT) 12.3 SECONDS (9.0-12.0)
--- NOTE | 2017-04-01 07:38 | History & Physical Bridge Note ---
H&P Re-Evaluation Bridge Note: I have examined the patient, reviewed the History & Physical and in the interval since the performance of the History & Physical I have noted the following changes of clinical significance: No changes noted
[2017-04-01] MEDS ORDERED: BUPIVACAINE/EPINEPHRINE 0.5% MPF 1:200,000 10 ML VIAL ONE (07:48)
[2017-04-01 07:55] LABS: CALCIUM 8.6 mg/dl (8.5-10.1); CREATININE 0.87 mg/dl (0.60-1.20); POTASSIUM 3.7 mmol/L (3.5-5.1)
[2017-04-01 08:03] LABS: ALB/GLOB RATIO 1.1 (0.9-2)
[2017-04-01] MEDS ORDERED: PHENYLEPHRINE HCL INJ 10 MG/ML VIAL ONE (08:33)
[2017-04-01] MEDS ORDERED: NEOSTIGMINE METHYLSULFATE 5 MG/5 ML SYR ONE (08:33)
[2017-04-01] MEDS ORDERED: GLYCOPYRROLATE INJ 0.2 MG/ML VIAL ONE (08:33)
[2017-04-01] MEDS ORDERED: ONDANSETRON INJ 2 MG/ML 2 ML VIAL ONE (08:33)
[2017-04-01] MEDS ORDERED: DEXAMETHASONE SOD INJ 4 MG/ML VIAL ONE (08:33)
[2017-04-01] MEDS ORDERED: CISATRACURIUM BESYLATE IV SOLN 2 MG/ML 10 ML VIAL ONE (08:33)
[2017-04-01] MEDS ORDERED: ONDANSETRON INJ 2 MG/ML 2 ML VIAL IV PRN ×2 (09:00→09:45)
[2017-04-01] MEDS ORDERED: ATROPINE SULFATE 0.1 MG/ML 5ML SYR IV PRN (09:00)
[2017-04-01] MEDS ORDERED: EpHEDrine SULFATE INJ 50 MG/ML AMP IV PRN (09:00)
[2017-04-01] MEDS ORDERED: FENTANYL CITRATE INJ 50 MCG/1 ML 2 ML VIAL IV PRN (09:00)
--- NOTE | 2017-04-01 09:16 | DIAGNOSTIC IMAGING REPORT ---
LEFT HIP OR FILMS HISTORY: 86 years-old Female LT HIP, SHORT TROCH NAIL COMPARISON: Pelvis and left hip radiographs 03/31/2017 TECHNIQUE: 3 spot fluoroscopic images of the left hip were obtained utilizing 74.6 seconds of fluoroscopy time. FINDINGS/IMPRESSION: There has been interval placement of a left femur short intramedullary mehul with intertrochanteric nail fixating an acute intertrochanteric fracture. There is improved alignment of the previously described displaced and angulated intertrochanteric fracture. Mildly displaced lesser trochanteric fracture is redemonstrated. The above report was generated using voice recognition software. It may contain grammatical, syntax or spelling errors. Electronically signed by: Dong Munguia M.D. 04/01/2017 9:15 AM Dictated Date/Time: 04/01/2017 9:12 AM
--- NOTE | 2017-04-01 09:18 | [facility] Operative Report ---
Operative Report Operative Date Apr 01, 2017. Pre-Operative Diagnosis Left Intertroch Fracture Post-Operative Diagnosis Left Intertroch Fracture Procedure(s) Performed Left hip short trochanteric nail. Surgeon Auto Glass Technician Surgeon(s) None Estimated Blood Loss 50 cc Findings Above Specimens None per surgeon Drains none Anesthesia Gen. Complication(s) None Disposition Recovery Room / PACU Indications 86-year-old female who tripped and fell onto the left hip. She sustained a left intertrochanteric fracture. Given the nature of the injury I recommended open reduction internal fixation with a trochanteric fixation nail. Description of Procedure Risks benefits and alternatives of surgery including but not limited to infection, DVT, PE, pain, stiffness, need for surgery, damage to blood vessels, damage to nerves or risks of anesthesia, were discussed with the patient and her family and they wished to proceed. Patient was identified in the laterality was confirmed and marked. They received a preoperative antibiotic. The patient was transferred to the fracture table. The operative limb was placed in traction and the well leg was placed in a well leg apple that was well-padded. The arms were well-padded and placed out of the way of the surgical field. I confirmed reduction of the fracture with fluoroscopy with the patient's fracture table and made adjustments to fracture table alignment is necessary to reduce the fracture appropriately. The hip was then prepped and draped in the usual standard manner with ChloraPrep. I made a longitudinal incision proximal to the greater trochanter. I sharply incised through the skin and then used Bovie electrocautery to achieve hemostasis. I incised through the fascia and then bluntly dissected down to the tip of the greater trochanter. Under fluoroscopic guidance I placed a guide pin into the greater trochanter and ensured proper placement on both AP and lateral fluoroscopy views. Once I was satisfied with the position of the guide. I advanced this distally. I then overreamed with the 17 mm proximal reamer. I then placed a Synthes trochanteric fixation nail into position. The size of the nail was a short nail. Then I placed the guide arm onto the nail insertion device made a stab incision more distally and then placed the drill guide for the helical blade. I adjusted the position of the nail as necessary to ensure that the guidepin was center center in the femoral head. Once I was satisfied with the position of the pin advanced it to the appropriate position of the femoral head. I then measured and then reamed the lateral cortex and then reamed down into the femoral head. I then inserted a size [address] I then locked the set screw proximally and then compressed the fracture. Then through a stab incision I placed a interlocking screw through the drill guide. I confirmed hardware placement and maintenance of reduction on AP and lateral fluoroscopy views. Wounds were then thoroughly irrigated. The fascia was closed with interrupted #1 Vicryl suture. Subcutaneous tissues closed with interrupted 2-0 Vicryl suture and the skin with adán. Sterile dressings applied. All needle and sponge counts were correct at the end of the procedure the patient was transferred to the PACU in stable condition without apparent complication. I attest to the content of the Intraoperative Record and any orders documented therein. Any exceptions are noted below.
[2017-04-01] MEDS ORDERED: D5W AND NSS 1,000 ML IV SCH (09:31)
[2017-04-01] MEDS ORDERED: MAGNESIUM HYDROXIDE SUSP 30 ML UDC PO PRN (09:45)
[2017-04-01] MEDS ORDERED: COUGH DROP (SUGAR FREE) LOZ 24 LOZ/1 BOX PO PRN (09:45)
[2017-04-01] MEDS ORDERED: ACETAMINOPHEN 325 MG TAB PO PRN (09:45)
[2017-04-01] MEDS ORDERED: OXYCODONE HCL IR 5 MG TAB (IMMEDIATE RELEASE) PO PRN (09:45)
--- NOTE | 2017-04-01 09:49 | Anesthesiology Progress Note ---
Anesthesia Post Op Note Date & Time Apr 01, 2017 at 09:49 Vital Signs Pain Intensity: 0 Vital Signs Past 12 Hours Date Time Temp Pulse Resp B/P (MAP) Pulse Ox O2 Delivery O2 Flow Rate FiO2 04/01/17 09:40 83 16 138/78 95 Oxymask 10 04/01/17 09:30 86 16 145/86 96 Oxymask 10 04/01/17 09:22 36.8 96 16 143/93 96 Oxymask 10 04/01/17 07:07 36.9 89 16 156/84 (108) 97 Room Air 04/01/17 01:00 Room Air 03/31/17 23:03 36.8 79 14 137/81 (99) 98 Nasal Cannula 2.0 03/31/17 22:01 91 152/82 (105) Notes Mental Status: alert / awake / arousable, participated in evaluation Pt Amnestic to Procedure: Yes Nausea / Vomiting: adequately controlled Pain: adequately controlled Airway Patency, RR, SpO2: stable & adequate BP & HR: stable & adequate Hydration State: stable & adequate Anesthetic Complications: no major complications apparent
[2017-04-01] MEDS: LISINOPRIL 20 MG TAB PO SCH (13:50)
[2017-04-01] MEDS: AMLODIPINE BESYLATE 5 MG TAB PO SCH (13:50)
[2017-04-01] MEDS: CLINDAMYCIN IV 600 MG in DEXTROSE 5% 50ML 50 ML IV SCH ×2 (13:50→22:10)
[2017-04-01] MEDS: WARFARIN SOD 5 MG TAB PO SCH (15:48)
[2017-04-01] MEDS: DIGOXIN 0.125 MG TAB PO SCH (15:49)
--- NOTE | 2017-04-01 21:06 | Progress Note ---
Medicine Progress Note Date & Time of Visit: Apr 01, 2017 at 17:36. Subjective just returned from operation this morning throat slightly sore from intubation denies nausea, chest pain, shortness of breath or hip pain at this time in good spirits and conversing with denies LOC or dizziness related to fall Objective Last 8 Hrs Date Time Temp Pulse Resp B/P (MAP) Pulse Ox O2 Delivery O2 Flow Rate FiO2 04/01/17 15:49 103 04/01/17 15:16 36.6 103 18 136/78 (97) 93 Room Air 04/01/17 13:15 36.6 94 18 133/73 (93) 97 Room Air 04/01/17 12:15 36.7 78 16 142/69 (93) 95 Nasal Cannula 2.0 04/01/17 11:15 36.7 90 18 120/77 (91) 96 Nasal Cannula 2.0 04/01/17 10:47 81 17 130/68 (88) 91 Nasal Cannula 2.0 04/01/17 10:15 Nasal Cannula 04/01/17 10:15 36.9 76 16 122/75 (91) 96 Nasal Cannula 2.0 04/01/17 10:15 96 Nasal Cannula 2.0 04/01/17 10:00 36.2 96 16 135/72 96 Nasal Cannula 2 04/01/17 09:50 96 16 146/70 96 Nasal Cannula 2 04/01/17 09:40 83 16 138/78 95 Oxymask 10 Physical Exam: GEN: WNWD, in no acute distress, alert and appropriate HEENT: NC/AT, normal sclerae, MMM NECK: trachea midline CARDIO: reg rate, S1/2 heard without m/g/r LUNGS: CTA bilaterally, no crackles, rales or wheezes, good diaphragmatic excursion ABD: soft, non-tender, non-distended, no rebound or guarding, +BS EXTREMITY: RP and DP palpable 2+ bilat, no LE swelling or edema, extremities are warm and well-perfused, LE NVI, L hip with dry dressing in place over wound N/M: CN 2-12 grossly intact, sensation intact throughout, no gross focal deficits. SKIN: warm and dry Laboratory Results: 04/01/17 06:33 Red Blood Count 3.92, Mean Corpuscular Volume 93.4, Mean Corpuscular Hemoglobin 31.4, Mean Corpuscular Hemoglobin Concent 33.6, Mean Platelet Volume 10.2, Neutrophils (%) (Auto) 73.8, Lymphocytes (%) (Auto) 14.6, Monocytes (%) (Auto) 10.5, Eosinophils (%) (Auto) 0.6, Basophils (%) (Auto) 0.2, Neutrophils # (Auto ) 7.41, Lymphocytes # (Auto) 1.46, Monocytes # (Auto) 1.05, Eosinophils # (Auto ) 0.06, Basophils # (Auto) 0.02 04/01/17 06:33 Test 03/31/17 12:19 03/31/17 14:19 04/01/17 06:33 04/01/17 09:41 Urine Color YELLOW Urine Appearance CLEAR (CLEAR) Urine pH 7.0 (4.5-7.5) Urine Specific [place] 1.015 (1.000-1.030) Urine Protein NEG (NEG) Urine Glucose (UA) NEG (NEG) Urine Ketones NEG (NEG) Urine Occult Blood NEG (NEG) Urine Nitrite NEG (NEG) Urine Bilirubin NEG (NEG) Urine Urobilinogen NEG (NEG) Urine Leukocyte Esterase NEG (NEG) Digoxin Level 0.4 ng/ml (0.8-2.0) White Blood Count 10.03 K/uL (4.8-10.8) Red Blood Count 3.92 M/uL (4.2-5.4) Hemoglobin 12.3 g/dL (12.0-16.0) Hematocrit 36.6 % (37-47) Mean Corpuscular Volume 93.4 fL (80-100) Mean Corpuscular Hemoglobin 31.4 pg (25-34) Mean Corpuscular Hemoglobin Concent 33.6 g/dl (32-36) Platelet Count 206 K/uL (130-400) Mean Platelet Volume 10.2 fL (7.4-10.4) Neutrophils (%) (Auto) 73.8 % Lymphocytes (%) (Auto) 14.6 % Monocytes (%) (Auto) 10.5 % Eosinophils (%) (Auto) 0.6 % Basophils (%) (Auto) 0.2 % Neutrophils # (Auto) 7.41 K/uL (1.4-6.5) Lymphocytes # (Auto) 1.46 K/uL (1.2-3.4) Monocytes # (Auto) 1.05 K/uL (0.11-0.59) Eosinophils # (Auto) 0.06 K/uL (0-0.5) Basophils # (Auto) 0.02 K/uL (0-0.2) RDW Standard Deviation 47.1 fL (36.4-46.3) RDW Coefficient of Variation 13.8 % (11.5-14.5) Immature Granulocyte % (Auto) 0.3 % Immature Granulocyte # (Auto) 0.03 K/uL (0.00-0.02) Prothrombin Time 12.3 SECONDS (9.0-12.0) Prothromb Time International Ratio 1.1 (0.9-1.1) Activated Partial Thromboplast Time 26.4 SECONDS (21.0-31.0) Partial Thromboplastin Ratio 1.0 Anion Gap 7.0 mmol/L (3-11) Est Creatinine Clear Calc Drug Dose 45.9 ml/min Estimated GFR () 69.4 Estimated GFR (Non- 59.9 BUN/Creatinine Ratio 16.0 (10-20) Calcium Level 8.6 mg/dl (8.5-10.1) Total Bilirubin 2.0 mg/dl (0.2-1) Aspartate Amino Transf (AST/SGOT) 11 U/L (15-37) Alanine Aminotransferase (ALT/SGPT) 19 U/L (12-78) Alkaline Phosphatase 51 U/L (45-117) Total Protein 6.1 gm/dl (6.4-8.2) Albumin 3.2 gm/dl (3.4-5.0) Globulin 2.9 gm/dl (2.5-4.0) Albumin/Globulin Ratio 1.1 (0.9-2) Bedside Glucose 187 mg/dl (70-90) Date/Time Source Procedure Growth Status 03/31/17 00:00 Nasal MRSA DNA Surveillance Screen - Final Specimen Negative for MRSA by DNA Probe Complete Last 24 Hours Test 04/01/17 06:33 04/01/17 09:41 White Blood Count 10.03 K/uL Red Blood Count 3.92 M/uL Hemoglobin 12.3 g/dL Hematocrit 36.6 % Mean Corpuscular Volume 93.4 fL Mean Corpuscular Hemoglobin 31.4 pg Mean Corpuscular Hemoglobin Concent 33.6 g/dl Platelet Count 206 K/uL Mean Platelet Volume 10.2 fL Neutrophils (%) (Auto) 73.8 % Lymphocytes (%) (Auto) 14.6 % Monocytes (%) (Auto) 10.5 % Eosinophils (%) (Auto) 0.6 % Basophils (%) (Auto) 0.2 % Neutrophils # (Auto) 7.41 K/uL Lymphocytes # (Auto) 1.46 K/uL Monocytes # (Auto) 1.05 K/uL Eosinophils # (Auto) 0.06 K/uL Basophils # (Auto) 0.02 K/uL RDW Standard Deviation 47.1 fL RDW Coefficient of Variation 13.8 % Immature Granulocyte % (Auto) 0.3 % Immature Granulocyte # (Auto) 0.03 K/uL Prothrombin Time 12.3 SECONDS Prothromb Time International Ratio 1.1 Activated Partial Thromboplast Time 26.4 SECONDS Partial Thromboplastin Ratio 1.0 Sodium Level 142 mmol/L Potassium Level 3.7 mmol/L Chloride Level 105 mmol/L Carbon Dioxide Level 30 mmol/L Anion Gap 7.0 mmol/L Blood Urea Nitrogen 14 mg/dl Creatinine 0.87 mg/dl Est Creatinine Clear Calc Drug Dose 45.9 ml/min Estimated GFR () 69.4 Estimated GFR (Non- 59.9 BUN/Creatinine Ratio 16.0 Random Glucose 136 mg/dl Calcium Level 8.6 mg/dl Total Bilirubin 2.0 mg/dl Aspartate Amino Transf (AST/SGOT) 11 U/L Alanine Aminotransferase (ALT/SGPT) 19 U/L Alkaline Phosphatase 51 U/L Total Protein 6.1 gm/dl Albumin 3.2 gm/dl Globulin 2.9 gm/dl Albumin/Globulin Ratio 1.1 Bedside Glucose 187 mg/dl Assessment & Plan 86 yo F s/p mechanical fall with displaced and angulated intertrochanteric fracture of the left femur with separate lesser trochanter fracture fragment s/ p L short intertrochanteric nail on 04/01 1. Post operative state-pain is controlled, cont pain control efforts and wound care per Ortho recs. Pt prefers to go to [facility] for rehab. Will facilitate with Case Management. 2. Afib-rate controlled on atenolol, cont digoxin. Anticoagulated on coumadin which was held and vitamin K given preoperatively. Coumadin restarted by surgery today. 3. HTN-controlled, cont lisinopril, amlodipine, atenolol 4. [id number]. Watch daily fasting sugar, no fingersticks or coverage at this time. 5. pulmonary nodules-former smoker, CT chest in am to better characterize and track. DVT prophy-coumadin DNR Dispo-to [facility] when cleared by Ortho. [facility] Consult[facility]: Dilip Current Inpatient Medications: Current Inpatient Medications Medications (Trade) Dose Ordered Sig/Mike Route Start Time Stop Time Status Last Admin Dose Admin Hydromorphone HCl (Dilaudid Inj) 0.5 mg Q20M PRN IV 03/31/17 13:00 04/14/17 12:59 03/31/17 16:19 0.5 MG Naloxone HCl (Narcan Inj) 0.1 mg PRN PRN IV 03/31/17 13:00 04/30/17 12:59 Senna/Docusate Sodium (Senokot S Tab) 2 tab HS PO 03/31/17 21:00 04/30/17 20:59 03/31/17 22:00 2 TAB Polyethylene (Miralax Powder Packet) 17 gm DAILY PRN PO 03/31/17 13:00 04/30/17 12:59 Bisacodyl (Dulcolax Supp) 10 mg DAILY PRN [place] 03/31/17 13:00 04/30/17 12:59 Sodium Biphosphate/ Sodium Phosphate (Fleet Enema) 132 ml PRN PRN [place] 03/31/17 13:00 Amlodipine Besylate (Norvasc Tab) 5 mg DAILY PO 04/01/17 09:00 05/01/17 08:59 04/01/17 13:50 5 MG Atenolol (Tenormin Tab) 100 mg QPM PO 03/31/17 21:00 04/30/17 20:59 03/31/17 22:00 100 MG Dicyclomine HCl (Bentyl Cap) 10 mg QID PRN PO 03/31/17 13:30 04/30/17 13:29 Digoxin (Lanoxin Tab) 0.125 mg DAILY@1600 PO 03/31/17 16:00 04/30/17 15:59 04/01/17 15:49 0.125 MG Lisinopril (Zestril Tab) 20 mg DAILY PO 04/01/17 09:00 05/01/17 08:59 04/01/17 13:50 20 MG Lorazepam (Ativan Tab) 0.5 mg Q6H PRN PO 03/31/17 13:30 04/30/17 13:29 Nitroglycerin (Nitrostat Tab) 0.3 mg PRN PRN [place] 03/31/17 13:30 04/30/17 13:29 Clindamycin Phosphate (Cleocin 600mg/ 54ml D5W) 600 mg PREOP IV 04/01/17 06:00 04/01/17 18:00 Dextrose/Sodium Chloride 1,000 ml @ 75 mls/hr [id number] IV 04/01/17 09:31 05/01/17 09:30 04/01/17 12:08 75 MLS/HR Clindamycin Phosphate 600 mg/ Dextrose 54 ml @ 100 mls/hr Q8H IV 04/01/17 14:00 04/01/17 22:33 04/01/17 13:50 100 MLS/HR Ondansetron HCl (Zofran Inj) 4 mg Q6H PRN IV 04/01/17 09:45 05/01/17 09:44 Acetaminophen (Tylenol Tab) 650 mg Q6H PRN PO 04/01/17 09:45 05/01/17 09:44 Oxycodone HCl (Roxicodone Immediate Rel Tab) 5 mg Q4H PRN PO 04/01/17 09:45 04/15/17 09:44 Menthol (Nice Jimenez) 1 jimenez Q2H PRN PO 04/01/17 09:45 05/01/17 09:44 Polyethylene (Miralax Powder Packet) 17 gm Q6 PO 04/03/17 06:00 05/03/17 05:59 Magnesium Hydroxide (Milk Of Magnesia Susp) 30 ml DAILY PRN PO 04/01/17 09:45 05/01/17 09:44 Miscellaneous Information (Standard Warfarin Nomogram) 1 ea DAILY@14 N/A 04/03/17 14:00 05/03/17 13:59 Warfarin Sodium (Coumadin Tab) 5 mg SuMo@1600 PO 04/01/17 16:00 04/02/17 16:01 04/01/17 15:48 5 MG
[2017-04-01] MEDS: DOCUSATE SODIUM/SENNA 50/8.6MG TAB PO SCH (22:10)
[2017-04-01] MEDS ORDERED: NURSING VERBAL MED ORDER ONE (23:15)
[2017-04-02] VITALS (7 sets, daily range): BP systolic 123–140; BP diastolic 64–74; PULSE 75–85; TEMP 36.5–37; O2SAT 95–97
[2017-04-02 05:55] LABS: HEMATOCRIT 32.3 % (37-47); MEAN CELL VOLUME 92.6 fL (80-100); MEAN CORPUSCULAR HEMOGLOBIN 30.9 pg (25-34); MEAN CORPUSCULAR HGB CONC 33.4 g/dl (32-36); MEAN PLATELET VOLUME 9.9 fL (7.4-10.4); PLATELET COUNT 196 K/uL (130-400); RED BLOOD COUNT 3.49 M/uL (4.2-5.4); WHITE BLOOD COUNT 11.92 K/uL (4.8-10.8)
[2017-04-02 06:04] LABS: INR 1.1 (0.9-1.1); PROTHROMBIN TIME (PATIENT) 11.9 SECONDS (9.0-12.0)
[2017-04-02 06:28] LABS: BUN/CREATININE RATIO 15.5 (10-20); CREATININE 0.94 mg/dl (0.60-1.20); POTASSIUM 3.8 mmol/L (3.5-5.1)
--- NOTE | 2017-04-02 07:11 | Orthopedic Progress Note ---
Orthopedic Progress Note Date of Service Apr 02, 2017. Subjective Post OP Day: 1 Reports: feeling well, pain controlled w PO medications, Denies: complaints, chest pain, SOB, nausea / vomiting, light headedness, calf pain Objective calves soft nontender, N/V intact, capillary refill less than 2 sec., dressing C /D/I, toes mobile PATIENT WAS VERY LETHARGIC ON EXAM. SHE WAS ABLE TO ANSWER QUESTIONS WHEN AROUSED. Date Time Temp Pulse Resp B/P (MAP) Pulse Ox O2 Delivery O2 Flow Rate FiO2 04/02/17 04:00 37.0 85 18 130/64 (86) 95 Room Air 04/01/17 23:30 Room Air 04/01/17 23:07 36.7 80 15 118/71 (87) 96 Room Air 04/01/17 22:08 94 04/01/17 19:55 36.8 83 17 147/70 (95) 97 Room Air 04/01/17 15:49 103 04/01/17 15:40 Room Air 04/01/17 15:16 36.6 103 18 136/78 (97) 93 Room Air 04/01/17 13:15 36.6 94 18 133/73 (93) 97 Room Air 04/01/17 12:15 36.7 78 16 142/69 (93) 95 Nasal Cannula 2.0 04/01/17 11:15 36.7 90 18 120/77 (91) 96 Nasal Cannula 2.0 04/01/17 10:47 81 17 130/68 (88) 91 Nasal Cannula 2.0 04/01/17 10:15 Nasal Cannula 04/01/17 10:15 36.9 76 16 122/75 (91) 96 Nasal Cannula 2.0 04/01/17 10:15 96 Nasal Cannula 2.0 04/01/17 10:00 36.2 96 16 135/72 96 Nasal Cannula 2 04/01/17 09:50 96 16 146/70 96 Nasal Cannula 2 04/01/17 09:40 83 16 138/78 95 Oxymask 10 04/01/17 09:30 86 16 145/86 96 Oxymask 10 04/01/17 09:22 36.8 96 16 143/93 96 Oxymask 10 Laboratory Results 24 Hours: Test 04/02/17 05:35 Hematocrit 32.3 % Hemoglobin 10.8 g/dL Prothromb Time International Ratio 1.1 Prothrombin Time 11.9 SECONDS Assessment & Plan Assessment: POD #1 LEFT TROCH NAIL Plan: DVT - COUMADIN PT/OT WBAT LLE DISCHARGE - UNCERTAIN Inhouse Planning Pain Management: PO Tylenol, Oxy IR DVT Prophylaxis: SCDs, Coumadin Discharge Planning Discharge Planning: uncertain
[2017-04-02] MEDS: LISINOPRIL 20 MG TAB PO SCH (09:40)
[2017-04-02] MEDS: AMLODIPINE BESYLATE 5 MG TAB PO SCH (09:40)
[2017-04-02] MEDS ORDERED: TRAMADOL HCL 50 MG TAB PO PRN (14:30)
[2017-04-02] MEDS: DIGOXIN 0.125 MG TAB PO SCH (16:00)
[2017-04-02] MEDS: WARFARIN SOD 5 MG TAB PO SCH (16:00)
[2017-04-02] MEDS: DOCUSATE SODIUM/SENNA 50/8.6MG TAB PO SCH (20:50)
--- NOTE | 2017-04-02 22:49 | Progress Note ---
Medicine Progress Note Date & Time of Visit: Apr 02, 2017 at 13:49. Subjective tolerating PO pain well-controlled but she is asking for something weaker than the oxycodone denies h/o smoking -discussed lung nodules otherwise is asymptomatic. Objective Last 8 Hrs Date Time Temp Pulse Resp B/P (MAP) Pulse Ox O2 Delivery O2 Flow Rate FiO2 04/02/17 12:07 36.8 77 16 128/72 (90) 97 Room Air 04/02/17 08:13 95 Room Air 04/02/17 08:12 95 Room Air 04/02/17 08:12 36.7 79 14 132/72 (92) 95 Room Air Physical Exam: GEN: WNWD, in no acute distress, alert and appropriate HEENT: NC/AT, normal sclerae, MMM NECK: trachea midline CARDIO: reg rate, S1/2 heard without m/g/r LUNGS: CTA bilaterally, no crackles, rales or wheezes, good diaphragmatic excursion ABD: soft, non-tender, non-distended, no rebound or guarding, +BS EXTREMITY: RP and DP palpable 2+ bilat, no LE swelling or edema, extremities are warm and well-perfused, LE NVI, L hip with dry dressing in place over wound N/M: CN 2-12 grossly intact, sensation intact throughout, no gross focal deficits. SKIN: warm and dry Laboratory Results: 04/02/17 05:35 04/02/17 05:35 Test 03/31/17 12:19 03/31/17 14:19 04/01/17 06:33 04/01/17 09:41 Urine Color YELLOW Urine Appearance CLEAR (CLEAR) Urine pH 7.0 (4.5-7.5) Urine Specific [place] 1.015 (1.000-1.030) Urine Protein NEG (NEG) Urine Glucose (UA) NEG (NEG) Urine Ketones NEG (NEG) Urine Occult Blood NEG (NEG) Urine Nitrite NEG (NEG) Urine Bilirubin NEG (NEG) Urine Urobilinogen NEG (NEG) Urine Leukocyte Esterase NEG (NEG) Digoxin Level 0.4 ng/ml (0.8-2.0) Immature Granulocyte % (Auto) 0.3 % White Blood Count 10.03 K/uL (4.8-10.8) Red Blood Count 3.92 M/uL (4.2-5.4) Hemoglobin 12.3 g/dL (12.0-16.0) Hematocrit 36.6 % (37-47) Mean Corpuscular Volume 93.4 fL (80-100) Mean Corpuscular Hemoglobin 31.4 pg (25-34) Mean Corpuscular Hemoglobin Concent 33.6 g/dl (32-36) Platelet Count 206 K/uL (130-400) Mean Platelet Volume 10.2 fL (7.4-10.4) Neutrophils (%) (Auto) 73.8 % Lymphocytes (%) (Auto) 14.6 % Monocytes (%) (Auto) 10.5 % Eosinophils (%) (Auto) 0.6 % Basophils (%) (Auto) 0.2 % Neutrophils # (Auto) 7.41 K/uL (1.4-6.5) Lymphocytes # (Auto) 1.46 K/uL (1.2-3.4) Monocytes # (Auto) 1.05 K/uL (0.11-0.59) Eosinophils # (Auto) 0.06 K/uL (0-0.5) Basophils # (Auto) 0.02 K/uL (0-0.2) Immature Granulocyte # (Auto) 0.03 K/uL (0.00-0.02) Activated Partial Thromboplast Time 26.4 SECONDS (21.0-31.0) Partial Thromboplastin Ratio 1.0 Total Bilirubin 2.0 mg/dl (0.2-1) Aspartate Amino Transf (AST/SGOT) 11 U/L (15-37) Alanine Aminotransferase (ALT/SGPT) 19 U/L (12-78) Alkaline Phosphatase 51 U/L (45-117) Total Protein 6.1 gm/dl (6.4-8.2) Albumin 3.2 gm/dl (3.4-5.0) Globulin 2.9 gm/dl (2.5-4.0) Albumin/Globulin Ratio 1.1 (0.9-2) Bedside Glucose 187 mg/dl (70-90) Test 04/02/17 05:35 Red Blood Count 3.49 M/uL (4.2-5.4) Mean Corpuscular Volume 92.6 fL (80-100) Mean Corpuscular Hemoglobin 30.9 pg (25-34) Mean Corpuscular Hemoglobin Concent 33.4 g/dl (32-36) RDW Standard Deviation 46.4 fL (36.4-46.3) RDW Coefficient of Variation 13.7 % (11.5-14.5) Mean Platelet Volume 9.9 fL (7.4-10.4) Prothrombin Time 11.9 SECONDS (9.0-12.0) Prothromb Time International Ratio 1.1 (0.9-1.1) Anion Gap 6.0 mmol/L (3-11) Est Creatinine Clear Calc Drug Dose 42.5 ml/min Estimated GFR () 63.2 Estimated GFR (Non- 54.5 BUN/Creatinine Ratio 15.5 (10-20) Calcium Level 8.0 mg/dl (8.5-10.1) Date/Time Source Procedure Growth Status 03/31/17 00:00 Nasal MRSA DNA Surveillance Screen - Final Specimen Negative for MRSA by DNA Probe Complete Last 24 Hours Test 04/02/17 05:35 White Blood Count 11.92 K/uL Red Blood Count 3.49 M/uL Hemoglobin 10.8 g/dL Hematocrit 32.3 % Mean Corpuscular Volume 92.6 fL Mean Corpuscular Hemoglobin 30.9 pg Mean Corpuscular Hemoglobin Concent 33.4 g/dl RDW Standard Deviation 46.4 fL RDW Coefficient of Variation 13.7 % Platelet Count 196 K/uL Mean Platelet Volume 9.9 fL Prothrombin Time 11.9 SECONDS Prothromb Time International Ratio 1.1 Sodium Level 136 mmol/L Potassium Level 3.8 mmol/L Chloride Level 100 mmol/L Carbon Dioxide Level 30 mmol/L Anion Gap 6.0 mmol/L Blood Urea Nitrogen 15 mg/dl Creatinine 0.94 mg/dl Est Creatinine Clear Calc Drug Dose 42.5 ml/min Estimated GFR () 63.2 Estimated GFR (Non- 54.5 BUN/Creatinine Ratio 15.5 Random Glucose 168 mg/dl Calcium Level 8.0 mg/dl Assessment & Plan 86 yo F s/p mechanical fall with displaced and angulated intertrochanteric fracture of the left femur with separate lesser trochanter fracture fragment s/ p L short intertrochanteric nail on 04/01 1. Post operative state-pain is controlled, cont pain control efforts and wound care per Ortho recs. Pt prefers to go to [facility] for rehab. Will facilitate with Case Management. 2. Afib-rate controlled on atenolol, cont digoxin. Anticoagulated on coumadin which was held and vitamin K given preoperatively. Coumadin restarted by surgery. Cont daily INR and adjust as needed. 3. HTN-controlled, cont lisinopril, amlodipine, atenolol 4. [id number]. Watch daily fasting sugar, no fingersticks or coverage at this time. 5. pulmonary nodules-former smoker, CT chest ordered, however, patient denies this or any other imaging. It was explained to her that she has no prior imaging to check against and some form of imaging is recommended to gain a better understanding. She states that she would just like to have Dr. Meza deal with it as an outpatient. 6. Anemia-2/2 acute blood loss in setting of recent operation. Monitor closely. No indication for blood transfusion at this time. DVT prophy-coumadin DNR Dispo-to [facility] when cleared by Ortho[facility] Consultants: Dilip Current Inpatient Medications: Current Inpatient Medications Medications (Trade) Dose Ordered Sig/Mike Route Start Time Stop Time Status Last Admin Dose Admin Hydromorphone HCl (Dilaudid Inj) 0.5 mg Q20M PRN IV 03/31/17 13:00 04/14/17 12:59 03/31/17 16:19 0.5 MG Naloxone HCl (Narcan Inj) 0.1 mg PRN PRN IV 03/31/17 13:00 04/30/17 12:59 Senna/Docusate Sodium (Senokot S Tab) 2 tab HS PO 03/31/17 21:00 04/30/17 20:59 04/01/17 22:10 2 TAB Polyethylene (Miralax Powder Packet) 17 gm DAILY PRN PO 03/31/17 13:00 04/30/17 12:59 Bisacodyl (Dulcolax Supp) 10 mg DAILY PRN [place] 03/31/17 13:00 04/30/17 12:59 Sodium Biphosphate/ Sodium Phosphate (Fleet Enema) 132 ml PRN PRN [place] 03/31/17 13:00 Amlodipine Besylate (Norvasc Tab) 5 mg DAILY PO 04/01/17 09:00 05/01/17 08:59 04/02/17 09:40 5 MG Atenolol (Tenormin Tab) 100 mg QPM PO 03/31/17 21:00 04/30/17 20:59 04/01/17 22:10 100 MG Dicyclomine HCl (Bentyl Cap) 10 mg QID PRN PO 03/31/17 13:30 04/30/17 13:29 Digoxin (Lanoxin Tab) 0.125 mg DAILY@1600 PO 03/31/17 16:00 04/30/17 15:59 04/01/17 15:49 0.125 MG Lisinopril (Zestril Tab) 20 mg DAILY PO 04/01/17 09:00 05/01/17 08:59 04/02/17 09:40 20 MG Lorazepam (Ativan Tab) 0.5 mg Q6H PRN PO 03/31/17 13:30 04/30/17 13:29 Nitroglycerin (Nitrostat Tab) 0.3 mg PRN PRN [place] 03/31/17 13:30 04/30/17 13:29 Ondansetron HCl (Zofran Inj) 4 mg Q6H PRN IV 04/01/17 09:45 05/01/17 09:44 Acetaminophen (Tylenol Tab) 650 mg Q6H PRN PO 04/01/17 09:45 05/01/17 09:44 Oxycodone HCl (Roxicodone Immediate Rel Tab) 5 mg Q4H PRN PO 04/01/17 09:45 04/15/17 09:44 04/02/17 03:56 5 MG Menthol (Nice Ijmenez) 1 jimneez Q2H PRN PO 04/01/17 09:45 05/01/17 09:44 Polyethylene (Miralax Powder Packet) 17 gm Q6 PO 04/03/17 06:00 05/03/17 05:59 Magnesium Hydroxide (Milk Of Magnesia Susp) 30 ml DAILY PRN PO 04/01/17 09:45 05/01/17 09:44 Miscellaneous Information (Standard Warfarin Nomogram) 1 ea DAILY@14 N/A 04/03/17 14:00 05/03/17 13:59 Warfarin Sodium (Coumadin Tab) 5 mg SuMo@1600 PO 04/01/17 16:00 04/02/17 16:01 04/01/17 15:48 5 MG
[2017-04-03] MEDS: POLYETHYLENE (MIRALAX) 17 GM PACK PO SCH ×2 (05:38→12:00)
[2017-04-03 07:34] VITALS: BP 148/78; PULSE 84; TEMP 36.8; O2SAT 93
[2017-04-03 08:07] LABS: INR 1.2 (0.9-1.1); PROTHROMBIN TIME (PATIENT) 12.8 SECONDS (9.0-12.0)
[2017-04-03] MEDS: LISINOPRIL 20 MG TAB PO SCH (09:03)
[2017-04-03] MEDS: AMLODIPINE BESYLATE 5 MG TAB PO SCH (09:03)
--- NOTE | 2017-04-03 10:37 | Orthopedic Progress Note ---
Orthopedic Progress Note Date of Service Apr 03, 2017. Subjective Post OP Day: 2 Reports: feeling well, pain controlled w PO medications, Denies: complaints, chest pain, SOB, nausea / vomiting, light headedness, calf pain Objective calves soft nontender, N/V intact, capillary refill less than 2 sec., dressing C /D/I, A&O x3, toes mobile Date Time Temp Pulse Resp B/P (MAP) Pulse Ox O2 Delivery O2 Flow Rate FiO2 04/03/17 07:45 Room Air 04/03/17 07:34 36.8 84 16 148/78 (101) 93 Room Air 04/02/17 23:40 Room Air 04/02/17 22:56 36.6 75 16 123/69 (87) 95 Room Air 04/02/17 20:45 82 129/68 (88) 04/02/17 16:00 68 04/02/17 15:52 Room Air 04/02/17 15:15 36.5 84 18 140/74 (96) 97 Room Air 04/02/17 12:07 36.8 77 16 128/72 (90) 97 Room Air Laboratory Results 24 Hours: Test 04/03/17 07:27 Prothromb Time International Ratio 1.2 Prothrombin Time 12.8 SECONDS Assessment & Plan Assessment: POD #2 LEFT TROCH NAIL Plan: DVT - COUMADIN PT/OT WBAT LLE DISCHARGE - [facility] when approved Inhouse Planning Pain Management: PO Tylenol, Oxy IR DVT Prophylaxis: SCDs, Coumadin Discharge Planning Discharge Planning: long term facility ([facility] when approved)
--- NOTE | 2017-04-03 12:37 | Progress Note ---
Subjective Date of Service: Apr 03, 2017. Subjective Pt evaluation today including: conversation w/ patient, physical exam, lab review, review of studies, review of inpatient medication list Saw/examined the patient in room 361-1 Doing well Pain controlled at the L hip No other issues to note today Problem List Medical Problems: (1) Atrial fibrillation Status: Chronic (2) Fall Status: Acute (3) Femur fracture, left Status: Acute (4) Hip fracture, left Status: Acute (5) Skin tear of left elbow without complication Status: Acute Review of Systems Constitutional: No fever, No chills Respiratory: No shortness of breath Cardiac: No chest pain Abdomen: No pain, No nausea, No vomiting, No diarrhea Musculoskeletal: + joint pain (L hip; L knee; controlled) Medications Current Inpatient Medications Medications (Trade) Dose Ordered Sig/Mike Route Start Time Stop Time Status Last Admin Dose Admin Hydromorphone HCl (Dilaudid Inj) 0.5 mg Q20M PRN IV 03/31/17 13:00 04/14/17 12:59 03/31/17 16:19 0.5 MG Naloxone HCl (Narcan Inj) 0.1 mg PRN PRN IV 03/31/17 13:00 04/30/17 12:59 Senna/Docusate Sodium (Senokot S Tab) 2 tab HS PO 03/31/17 21:00 04/30/17 20:59 04/02/17 20:50 2 TAB Polyethylene (Miralax Powder Packet) 17 gm DAILY PRN PO 03/31/17 13:00 04/30/17 12:59 Bisacodyl (Dulcolax Supp) 10 mg DAILY PRN NV 03/31/17 13:00 04/30/17 12:59 Sodium Biphosphate/ Sodium Phosphate (Fleet Enema) 132 ml PRN PRN NV 03/31/17 13:00 Amlodipine Besylate (Norvasc Tab) 5 mg DAILY PO 04/01/17 09:00 05/01/17 08:59 04/03/17 09:03 5 MG Atenolol (Tenormin Tab) 100 mg QPM PO 03/31/17 21:00 04/30/17 20:59 04/02/17 20:50 100 MG Dicyclomine HCl (Bentyl Cap) 10 mg QID PRN PO 03/31/17 13:30 04/30/17 13:29 Digoxin (Lanoxin Tab) 0.125 mg DAILY@1600 PO 03/31/17 16:00 04/30/17 15:59 04/02/17 16:00 0.125 MG Lisinopril (Zestril Tab) 20 mg DAILY PO 04/01/17 09:00 05/01/17 08:59 04/03/17 09:03 20 MG Lorazepam (Ativan Tab) 0.5 mg Q6H PRN PO 03/31/17 13:30 04/30/17 13:29 Nitroglycerin (Nitrostat Tab) 0.3 mg PRN PRN UT 03/31/17 13:30 04/30/17 13:29 Ondansetron HCl (Zofran Inj) 4 mg Q6H PRN IV 04/01/17 09:45 05/01/17 09:44 Acetaminophen (Tylenol Tab) 650 mg Q6H PRN PO 04/01/17 09:45 05/01/17 09:44 Menthol (Nice Jimenez) 1 jimenez Q2H PRN PO 04/01/17 09:45 05/01/17 09:44 Polyethylene (Miralax Powder Packet) 17 gm Q6 PO 04/03/17 06:00 05/03/17 05:59 Magnesium Hydroxide (Milk Of Magnesia Susp) 30 ml DAILY PRN PO 04/01/17 09:45 05/01/17 09:44 Tramadol HCl (Ultram Tab) 25 mg Q6H PRN PO 04/02/17 14:30 05/02/17 14:29 04/03/17 05:42 25 MG Warfarin Sodium (Coumadin Tab) 4 mg SuTuWeThSa@1600 PO 04/03/17 16:00 05/03/17 15:59 Warfarin Sodium (Coumadin Tab) 6 mg MoFr@1600 PO 04/06/17 16:00 05/06/17 15:59 Objective Vital Signs Date Time Temp Pulse Resp B/P (MAP) Pulse Ox O2 Delivery O2 Flow Rate FiO2 04/03/17 07:45 Room Air 04/03/17 07:34 36.8 84 16 148/78 (101) 93 Room Air 04/02/17 23:40 Room Air 04/02/17 22:56 36.6 75 16 123/69 (87) 95 Room Air 04/02/17 20:45 82 129/68 (88) 04/02/17 16:00 68 04/02/17 15:52 Room Air 04/02/17 15:15 36.5 84 18 140/74 (96) 97 Room Air Physical Exam General Appearance: no apparent distress Respiratory/Chest: chest non-tender, lungs clear, normal breath sounds, no respiratory distress, no accessory muscle use Cardiovascular: regular rate, rhythm, no edema, no murmur Abdomen: normal bowel sounds, non tender, soft Extremities: normal inspection, no pedal edema, + pertinent finding (L hip dressed; no drainage noted) Neurologic/Psychiatric: no motor/sensory deficits, alert, normal mood/affect Laboratory Results Last 24 Hours Test 04/03/17 07:27 Prothrombin Time 12.8 SECONDS Prothromb Time International Ratio 1.2 Assessment and Plan This is an 86 year old female with a PMH of paroxysmal A. fib on Coumadin, HTN, DM2 - presents with L hip fracture L Hip Fracture s/p repair POD #2 doing well, no problems to note pain controlled; continue current medications Coumadin restarted PT/OT plan to d/c to HS today (04/03) Paroxysmal A. fib currently in NSR continue Coumadin recheck INR in 2-3 days, goal of 2-3 cont. b-eduard and digoxin HTN continue Lisinopril and Norvasc, continue atenolol BP stable DM2 diet controlled BSGs stable DVT ppx Coumadin restarted as per ortho DNR
[2017-04-03] MEDS ORDERED: ULT50X PO (12:38)
--- NOTE | 2017-04-03 12:40 | Discharge Instructions ---
Discharge Instructions Date of Service Apr 03, 2017. Admission Reason for Admission: A Fib, L Femur Fracture Discharge Discharge Diagnosis / Problem: L Femoral Fracture after a Mechanical Fall Discharge Goals Goal(s): Decrease discomfort, Improve function, Diagnostic testing, Therapeutic intervention Activity Recommendations Activity Level: Up Ad Tricia Therapies: Physical Therapy, Occupational Therapy Weightbearing Status: Left weightbearing (as tolerated) Lifting Limitations: gradually increase as tolerated Exercise/Sports Limitations: as tolerated Shower/Bathe: no limitations . Additional Information Patient informed of condition: Yes Advance Directives: Yes DNR: Yes Level of Care: Acute Rehab Communicable Disease: No Prognosis: Stable Rodriguez Catheter: No Instructions / Follow-Up Instructions / Follow-Up Please follow-up with orthopedics in 2 weeks to remove adán Weightbearing as tolerated on the left side Please follow-up with your primary care physician after rehab stay [facility] should recheck INR in 2-3 days with a goal INR of 2-3 Current Hospital Diet Patient's current hospital diet: Regular Diet Discharge Diet Recommended Diet: Regular Diet Procedures Procedures Performed: Left hip short trochanteric nail. Pending Studies Studies pending at discharge: no Medical Emergencies . Who to Call and When: Medical Emergencies: If at any time you feel your situation is an emergency, please call 911 immediately. . Non-Emergent Contact Non-Emergency issues call your: Primary Care Provider . . "Provider Documentation" section prepared by Yo Epperson. . Core Measure Problem Core Measures: None
--- NOTE | 2017-04-03 12:42 | Discharge Summary ---
Discharge Summary Date of Service Apr 03, 2017. Discharge Summary Admission Date: Mar 31, 2017 at 13:34 Discharge Date: Apr 03, 2017 Discharge Disposition: Rehab Principal Diagnosis: Mechanical Fall L Femoral Fracture Consultations: Ortho-[facility] Medication Reconciliation New Medications: Tramadol HCl (Tramadol HCl) 50 Mg Tab 25 MG PO Q6H PRN for pain for 3 Days, #6 TAB Continued Medications: Alendronate Sodium (Alendronate Sodium) 70 Mg Tab 70 MG PO SUNDAY, #4 Amlodipine (Norvasc) 5 Mg Tab 5 MG PO DAILY, 0 Refills Atenolol (Tenormin) 100 Mg Tab 100 MG PO QPM, 0 Refills Betamethasone Dip (Betamethasone Dipropionat) 60 Appln/60 Ml Lotn 1 APPLN TOP DAILY PRN for SCALP ITCH, #60 Calcium Carbonate-Vitamin D W/ (Caltrate 600 Plus) 1 Tab Tab 1 TAB PO DAILY, TAB Cholecalciferol (Vitamin D) 1,000 Unit Tab 1000 UNIT PO DAILY Dicyclomine Hcl (Dicyclomine Hcl) 10 Mg Cap 10 MG PO QID PRN for ABDOMINAL PAIN Digoxin (Digoxin) 0.125 Mg Tab 0.125 MG PO DAILY@1500, #90 Krill Oil (Megared [place]-3 Krill Oil 500 mg) 1 Cap Cap 1 CAP PO DAILY Lisinopril (Prinivil) 20 Mg Tab 20 MG PO DAILY, 0 Refills Lorazepam (Ativan) 0.5 Mg Tab 0.5 MG PO Q6H PRN for Anxiety, TAB Magnesium Oxide (Mag-Ox) 400 Mg Tab 400 MG PO DAILY, 0 Refills Multiple Vitamins W/ Minerals (Multi For Her 50+) 1 Tab Tab 1 TAB PO DAILY Nitroglycerin (Nitrostat) 0.3 Mg Tab 0.3 MG UT PRN, 0 Refills Warfarin Sod (Jantoven) 4 Mg Tab 4 MG PO 5XWK, TAB EXCEPT SUNDAY AND SUNDAY Warfarin Sod (Jantoven) 6 Mg Tab 6 MG PO 2XWK, TAB SUNDAY AND SUNDAY ONLY Admission Information HPI (per Admitting provider): This is a 86 year old F with history of atrial fibrillation on coumadin with witnessed mechanical fall while at fast food restaurant without loss of consciousness. Patient found to have Displaced and angulated intertrochanteric fracture of the left femur with separate lesser trochanter fracture fragment. Patient is has therapeutic level of INR and last took her coumadin yesterday. Patient denies history of cardiac respiratory symptoms despite history of atrial fibrillation for which she also takes digoxin. Reports being able to ambulate without dyspnea at baseline, able to sleep comfortably flat on her back. She reports that she does get swelling of her legs towards the end of the day but that resolves in the morning after sleeping. She denies history of diabetes and there are no antihyperglycemic medications in her medication list. Patient also reports that in emergency situations she is DNR - no intubations, no mechanical ventilation, no chest compressions, no shocking of the heart. I explained to her that the DNR may need to be rescinded temporarily for when doing surgeries. I have referred her to discuss this in greater detail with orthopedic service who will be evaluating her leg fracture for possible surgical intervention. Patient reported that she ate breakfast before mechanical fall today. Physical Exam (per Admitting): General Appearance: no apparent distress Head: normocephalic, atraumatic Eyes: PERRL, EOMI ENT: hearing grossly normal, pharynx normal Neck: supple, no JVD Respiratory/Chest: chest non-tender, lungs clear, normal breath sounds, no respiratory distress, no accessory muscle use Cardiovascular: no edema, no JVD, + irregularly irregular Abdomen/GI: normal bowel sounds, non tender, soft, no pulsatile mass Extremities/Musculoskelatal: no calf tenderness, normal capillary refill, no pedal edema, + pertinent finding (left leg appears to be shorter than right leg when laying flat likely due to fracture) Neurologic/Psych: alert, oriented x 3 Skin: normal color, warm/dry, no rash Hospital Course This is an 86 year old female with a PMH of paroxysmal A. fib on Coumadin, HTN, DM2 - presents with L hip fracture L Hip Fracture s/p repair POD #2 doing well, no problems to note pain controlled; continue current medications Coumadin restarted PT/OT plan to d/c to HS today (04/03) Paroxysmal A. fib currently in NSR continue Coumadin recheck INR in 2-3 days, goal of 2-3 cont. b-eduard and digoxin HTN continue Lisinopril and Norvasc, continue atenolol BP stable DM2 diet controlled BSGs stable DVT ppx Coumadin restarted as per ortho DNR Total time spent on discharge = 35 minutes This includes examination of the patient, discharge planning, medication reconciliation, and communication with other providers. Discharge Instructions Please follow-up with orthopedics in 2 weeks to remove adán Weightbearing as tolerated on the left side Please follow-up with your primary care physician after rehab stay [facility] should recheck INR in 2-3 days with a goal INR of 2-3
[2017-04-03 12:44] VITALS: BP 148/78; PULSE 84; TEMP 36.8; O2SAT 93
[2017-04-03] MEDS: DIGOXIN 0.125 MG TAB PO SCH (13:34)
--- NOTE | 2017-04-03 13:37 | Consultant Recommendations ---
Butadiene Converter Utility Operator Recommendations Date of Service Apr 03, 2017. Butadiene Converter Utility Operator Recommendations [facility] DISCHARGE INSTRUCTIONS: HIP FRACTURE SELF CARE INSTRUCTIONS: A. You are to ambulate with a walker or crutches for approximately 6 weeks. B. You are WEIGHT BEARING TOLERATE on your operative lower extremity for at least 6 weeks. C. Wear low heeled shoes with non-slip soles D. Be sure that your floors are free of things that could trip you throw rugs, electrical cords, and small objects. Avoid wet and waxed floors, especially with crutches/walker/cane. E. Try to walk several times a day with rest periods between. F. You may shower 48 hours after surgery and get the incision area wet, but DO NOT soak or submerge incision area in water. (No baths, swimming pools, hot tubs ) G. You may have a large, band-aid like dressing over your incision (Aquacel). This will remain on your incision for 7 days, and then can be removed. You CAN shower with this on. If incision is leaking through the dressing, please call the office . H. Do NOT apply soap or any ointment/lotions directly over incision. I. You may use ice as needed to operative site. SPECIAL CARE INSTRUCTIONS: VERY IMPORTANT TO READ AND REVIEW A. You may be at risk for phlebitis or blood clots. a. Wear surgical stockings (ERUM hose) for 2 weeks after surgery to improve circulation and reduce swelling. b. Take ASPIRIN 325 mg twice daily. This is your blood thinner. c. If you are on Coumadin- you will have daily/weekly blood work to monitor your levels. This will be done by either your family physician/ full roll inspector (if you are on Coumadin chronically) versus your orthopedic surgeon. Expect a phone call the day of or the day after your blood work is drawn to adjust your dose accordingly. B. There are a few signs you need to watch for after you are home. Call [facility] at [phone] if you experience any of the following: a. If you have a temperature of 101 degrees or higher. b. Sudden increase in pain in your hip not relieved by rest or pain medication. c. Any fluid or drainage from the incision; redness of the incision. d. Shortness of breath or chest pain. B. Please call [facility] at [phone] if you have any questions or concerns about your operation or recovery. C. Call your physician if: a. Temperature is greater than 101 degrees (F). b. Pain is not relieved by prescribed pain medications. c. Increase drainage or redness from incision. d. Unanswered questions or concerns. D. Pain Medication: a. You will be prescribed pain medication upon discharge that should last till your first post-operative appointment. b. If you experience nausea and/or skin rash, discontinue this medication and contact our office for an alternative medication. c. Caution- narcotic pain medication can cause constipation. FOLLOW UP VISIT: Please call [facility] at [phone] to schedule a follow up appointment 10-14 days from the date of your surgery date.
[2017-04-03] MEDS ORDERED: STANDARD WARFARIN NOMOGRAM SCH (14:00)
[2017-04-03] MEDS ORDERED: WARFARIN SOD 4 MG TAB PO SCH (16:00)
[2017-04-06] MEDS ORDERED: WARFARIN SOD 6 MG TAB PO SCH (16:00)
== END 2017-04-03 15:19 | DRG 481 ==
LOC: EDBD 10:37 → C.EDC 10:38 → C.MSW 13:34 → EDBEDREQ 13:49 → ENRESERV 14:21
PROVIDERS: ADMIT Hospitalist; ATTEND Family Medicine
PROC: 0HQEXZZ Repair Left Lower Arm Skin, External Approach (ICD-10-PCS; principal; 2017-03-31)
PROC: 0QS704Z Reposition Left Upper Femur with Internal Fixation Device, Open Approach (ICD-10-PCS; 2017-04-01)
DX: S72.142A Displaced intertrochanteric fracture of left femur, initial encounter for closed fracture (principal); D62 Acute posthemorrhagic anemia; S72.122A Displaced fracture of lesser trochanter of left femur, initial encounter for closed fracture; S51.012A Laceration without foreign body of left elbow, initial encounter; W01.0XXA Fall on same level from slipping, tripping and stumbling without subsequent striking against object, initial encounter; Y92.511 Restaurant or cafe as the place of occurrence of the external cause; I48.0 Paroxysmal atrial fibrillation; R91.8 Other nonspecific abnormal finding of lung field; I12.9 Hypertensive chronic kidney disease with stage 1 through stage 4 chronic kidney disease, or unspecified chronic kidney disease; E11.22 Type 2 diabetes mellitus with diabetic chronic kidney disease; N18.9 Chronic kidney disease, unspecified; F41.9 Anxiety disorder, unspecified; Z66 Do not resuscitate; Z87.891 Personal history of nicotine dependence; Z79.899 Other long term (current) drug therapy; Z79.01 Long term (current) use of anticoagulants

== ENCOUNTER → 2017-04-11 | Outpatient (CLI) | payer OTHER, MEDICARE ==
[~2017-04-11] MED LIST changes: -ASPEC81 PO; -ATV5 PO; +CALCTAB7 PO; -CIPR-255 PO; -CLTP PO; -CMD2 PO; -DIGO0.2518 PO; -DPRCR15 TOP; +DPRSL60 TOP; +FSM70 PO; +KRIL1CAP18 PO; +LNX125 PO; +LORA-741 PO; -MEGA RED PO; +ULT50X PO; -WARF2TAB PO; +WARF4TAB8 PO; +WARF6TAB5 PO
--- NOTE | 2017-04-11 14:04 | DIAGNOSTIC IMAGING REPORT ---
LEFT KNEE 2 VIEWS CLINICAL HISTORY: Fall with left knee pain. FINDINGS: AP and crosstable lateral views of left knee are obtained. No prior studies are available for comparison at the time of dictation. The skeletal structures are osteopenic. No fracture is seen. There is mild to moderate tricompartmental degenerative joint space narrowing. No joint effusion is identified. There is prepatellar soft tissue edema and laceration. Atherosclerotic calcification is noted in the regional arteries. IMPRESSION: 1. Osteopenia and arthritic change as above. No left knee fracture is seen. 2. Prepatellar soft tissue edema and laceration. Electronically signed by: Zachariah Fregoso M.D. 04/11/2017 2:03 PM Dictated Date/Time: 04/11/2017 2:01 PM
== END | disposition home or self-care (01) ==
LOC: C.RAD 13:38
PROVIDERS: ATTEND Internal Medicine
DX: M25.562 Pain in left knee (principal)